=== PATIENT | female | born 1945 | race Asian ===

== ENCOUNTER 2017-02-07 10:32 | Inpatient (IN) | payer OTHER, MEDICAID ==
[~2017-02-07] VITALS: Ht 152.4 cm; Wt 59.5 kg
[2017-02-07 10:43] VITALS: Ht 152.4 cm; Wt 59.5 kg
[2017-02-07] MEDS ORDERED: morphine 4 MG/ML VIAL IV STA ×2 (12:36→19:44)
[2017-02-07] MEDS ORDERED: SOD CHLORIDE 0.9% 1,000 ML IV STA (12:36)
[2017-02-07] MEDS ORDERED: ONDANSETRON 4 MG INJ IV STA (12:36)
[2017-02-07] MEDS ORDERED: IBUPROFEN 600 MG TAB PO ONE (13:00)
[2017-02-07 13:05] LABS: ADD SCAN DIFF NO
[2017-02-07 13:07] LABS: BASOPHILS % 0.2 % (0.0-2.0); EOSINOPHILS # 0.8 10^3/ul (0.0-0.5); EOSINOPHILS % 6.1 % (0.0-7.0); HEMATOCRIT 26.3 % (37.0-47.0); HEMOGLOBIN 8.5 g/dl (12.0-16.0); LYMPHOCYTES # 1.4 10^3/ul (0.8-2.9); LYMPHOCYTES % 11.4 % (15.0-51.0); MEAN CORPUSCULAR HEMOGLOBIN 31.8 pg (29.0-33.0); MEAN CORPUSCULAR HGB CONC 32.3 g/dl (32.0-37.0); MEAN CORPUSCULAR VOLUME 98.5 fl (82.0-101.0); MONOCYTE # 0.5 10^3/ul (0.3-0.9); MONOCYTES % 4.4 % (0.0-11.0); NEUTROPHIL # 9.5 10^3/ul (1.6-7.5); NEUTROPHILS % 76.7 % (39.0-77.0); PLATELET COUNT 518 10^3/UL (140-415); RED BLOOD COUNT 2.67 10^6/ul (4.20-5.40); RED CELL DISTRIBUTION WIDTH 14.7 % (11.5-14.5); WHITE BLOOD COUNT 12.4 10^3/ul (4.8-10.8)
[2017-02-07] MEDS ORDERED: TYL500 PO (13:07)
[2017-02-07] MEDS ORDERED: LOSA100T7 PO (13:07)
[2017-02-07] MEDS ORDERED: ASPI-664 PO (13:07)
[2017-02-07] MEDS ORDERED: PIOG45TA6 PO (13:07)
[2017-02-07] MEDS ORDERED: AMOX500T PO (13:07)
[2017-02-07] MEDS ORDERED: MTF1000T PO (13:07)
[2017-02-07] MEDS ORDERED: ATOR40TA68 PO (13:07)
--- NOTE | 2017-02-07 13:22 | RADRPT ---
PROCEDURE: CHEST 1VW CLINICAL INDICATION: Abdominal pain TECHNIQUE: Single frontal view of the chest was obtained COMPARISON: 02/07/2017 FINDINGS: The cardiac size is mildly enlarged. Aortic vascular calcifications are demonstrated. There is no pulmonary vascular congestion. The lungs are clear. No consolidation, effusion, or pneumothorax. Mild degenerative changes of the visualized osseous structures are visualized. IMPRESSION: 1. No acute cardiopulmonary process. 2. Atherosclerosis with mild cardiomegaly. RPTAT:PP .Konstantin Falcon MD, Date Time Electronically viewed and signed by .Konstantin Falcon MD, on 02/07/2017 13:22 .V/
[2017-02-07 13:44] LABS: INR 1.12; PROTIME 14.4 Sec (12.2-14.2); PT RATIO 1.1
--- NOTE | 2017-02-07 13:59 | ERD ---
ER Documentation Chief Complaint Date/Time DATE: 02/07/17 TIME: 13:55 Chief Complaint SENT BY PCP - ENLARGED TENDER LEFT SIDE OF THE NECK AREA HPI 71-year-old woman referred by PMD for complaints of left lateral neck pain radiating up to the left scalp, associated with lymphadenopathy 2 weeks. Her PMD referred her here on suspicion of thyroiditis. Patient denies blurry vision , no dysgeusia, no weakness in her arms or legs, no slurred speech, no fevers or chills, no complaints of chest pain or shortness of breath. Patient denies hearing loss or discharge from the left EAC. HPI provided by ROS All systems reviewed and are negative except as per history of present illness. Medications Home Meds Reported Medications Atorvastatin* (Atorvastatin*) 40 Mg Tablet, 40 MG PO QHS, #30 TAB 02/07/17 Losartan Potassium* (Losartan Potassium*) 100 Mg Tablet, 100 MG PO DAILY, TAB 02/07/17 Pioglitazone Hcl* (Actos*) 45 Mg Tablet, 45 MG PO DAILY, #30 TAB 02/07/17 Metformin* (Glucophage*) 1,000 Mg Tablet, 1000 MG PO BID, #60 TAB 02/07/17 Acetaminophen* (Tylenol*) 500 Mg Tab, 500 MG PO Q4H Y for MILD PAIN LEVEL 1-3, TAB 02/07/17 Amoxicillin* (Amoxil*) 500 Mg Tablet, 500 MG PO BID, TAB 02/07/17 Aspirin* (Aspirin* EC) 81 Mg Tablet.dr, 81 MG PO DAILY, TAB 02/07/17 Allergies Allergies: Coded Allergies: No Known Allergy (Unverified , 02/07/17) PMhx/Soc Diabetes mellitus, hypertension, hyperlipidemia, coronary artery disease Medical and Surgical Hx: pt denies Surgical Hx Hx Miscellaneous Medical Probl: Yes (DM, HTN, HIGH CHOLESTEROL) Hx Alcohol Use: No Hx Substance Use: No Hx Tobacco Use: No Smoking Status: Never smoker FmHx Family History: No diabetes Physical Exam Vitals Vital Signs Date Time Temp Pulse Resp B/P Pulse Ox O2 Delivery O2 Flow Rate FiO2 02/07/17 14:38 91 20 148/67 94 Room Air 02/07/17 10:43 97.0 89 20 148/67 100 Physical Exam GENERAL: Well-developed, well-nourished, well-hydrated, in no apparent distress , looks nontoxic in appearance HEENT: Moist mucous membranes, pink conjunctiva, no goiter, positive tender lymphadenopathy over the lateral cervical chain on the left measuring about 3-4 cm in oval, mobile. No nystagmus, no ptosis, pupils equal round reactive to light, no esophageal or pharyngeal erythema, tympanic membranes bilaterally normal without bulging or erythema, no EAC discharge NEURO: Alert and oriented 3, cranial nerves II through XII intact bilaterally, pupils equal round reactive to light, no focal deficits or facial asymmetry, sensation intact distally Strength 5/5 in upper and lower extremities bilaterally, no ptosis, no nystagmus CARDIAC: Regular rate and rhythm, no murmurs rubs or gallops LUNGS: Clear bilaterally no wheezing crackles or stridor ABDOMEN: Soft nontender, no guarding, no rigidity, no rebound, no psoas sign no obturator sign. Normoactive bowel sounds SKIN: Warm and dry to touch, no abrasions, contusions, or hematomas, no lacerations, no ecchymosis, no target lesions, and without ulcers EXTREMITIES: No clubbing cyanosis or edema, calves are bilaterally symmetrical, no Homans sign, no popliteal cord sign. Distal pulses equal and bilateral PSYCH: Patient appears anxious Result Diagram: 02/07/17 1248 02/07/17 1248 Results 24 hrs Laboratory Tests Test 02/07/17 12:48 White Blood Count 12.410^3/ul Red Blood Count 2.6710^6/ul Hemoglobin 8.5g/dl Hematocrit 26.3% Mean Corpuscular Volume 98.5fl Mean Corpuscular Hemoglobin 31.8pg Mean Corpuscular Hemoglobin Concent 32.3g/dl Red Cell Distribution Width 14.7% Platelet Count 08195^3/UL Mean Platelet Volume 12.0fl Neutrophils % 76.7% Lymphocytes % 11.4% Monocytes % 4.4% Eosinophils % 6.1% Basophils % 0.2% Nucleated Red Blood Cells % 0.0/100WBC Neutrophils # 9.510^3/ul Lymphocytes # 1.410^3/ul Monocytes # 0.510^3/ul Eosinophils # 0.810^3/ul Basophils # 0.010^3/ul Nucleated Red Blood Cells # 0.010^3/ul Prothrombin Time 14.4Sec Prothrombin Time Ratio 1.1 INR International Normalized Ratio 1.12 Sodium Level 145mmol/L Potassium Level 3.7mmol/L Chloride Level 108mmol/L Carbon Dioxide Level 22mmol/L Anion Gap 19 Blood Urea Nitrogen 11mg/dl Creatinine 0.61mg/dl Glucose Level 183mg/dl Calcium Level 9.4mg/dl Total Bilirubin 0.2mg/dl Direct Bilirubin 0.00mg/dl Indirect Bilirubin 0.2mg/dl Aspartate Amino Transf (AST/SGOT) 53IU/L Alanine Aminotransferase (ALT/SGPT) 50IU/L Alkaline Phosphatase 319IU/L Troponin I < 0.012ng/ml Total Protein 8.4g/dl Albumin 4.1g/dl Globulin 4.30g/dl Albumin/Globulin Ratio 0.95 Lipase 121U/L Thyroid Stimulating Hormone (TSH) < 0.015MIU/L Free Thyroxine 3.07ng/dl Free Triiodothyronine (T3) pg/mL 3.77pg/ml Current Medications Medications (Trade) Dose Ordered Sig/Stephanie Route PRN Reason Start Time Stop Time Status Last Admin Dose Admin Sodium Chloride (NS) 1,000 ml @ 1,000 mls/hr Q1H STAT IV 02/07/17 12:36 02/07/17 13:35 DC 02/07/17 13:02 Morphine Sulfate (morphine) 4 mg ONCE STAT IV 02/07/17 12:36 02/07/17 12:37 DC 02/07/17 13:03 Ondansetron HCl (Zofran Inj) 4 mg ONCE STAT IV 02/07/17 12:36 02/07/17 12:37 DC 02/07/17 13:02 Ibuprofen (Motrin) 600 mg ONCE ONCE PO 02/07/17 13:00 02/07/17 13:01 DC 02/07/17 13:03 IV Flush 10 ml 10 ml STK-MED ONCE .ROUTE 02/07/17 14:23 02/07/17 14:24 DC 02/07/17 14:45 Sodium Chloride (NS) 100 ml @ ud STK-MED ONCE .ROUTE 02/07/17 14:23 02/07/17 14:24 DC 02/07/17 14:46 Iodixanol (Visipaque Locm) 100 ml STK-MED ONCE .ROUTE 02/07/17 14:23 02/07/17 14:24 DC 02/07/17 14:46 Procedures/MDM IV line was established patient was placed on clinical pharmacy specialist rhythm strip revealed a sinus rhythm at about 80 bpm with upright P and T waves. Patient was afebrile. EKG performed, read by me: 89 bpm, normal sinus rhythm, normal axis, no acute ST segment changes, narrow QRS complex, with good R-wave progression in precordial leads. One AP view of the chest performed, read by me reveals no acute infiltrates, normal mediastinum, sharp costophrenic and cardiac borders, no air under the diaphragm. CT angiogram of the neck was performed revealing a thyroid mass invading substernally. Please refer to radiologist dictation for full report. I administered 1 L normal saline intravenously, ibuprofen 600 mg p.o., morphine 4 mg IV, and Zofran 4 mg IV with good effect. Patient's pain resolved. CBC revealed anemia with a hemoglobin of 8.5, electrolytes were unremarkable, liver function tests were normal, troponin was negative. TSH was extremely low concerning for hyperthyroidism. Patient will be admitted to [facility] for continued medical management and possible heme/Onc consultation. Departure Diagnosis: Primary Impression: Thyroid mass Additional Impressions: Hyperthyroidism Anemia Anemia type: unspecified type Qualified Code: D64.9 - Anemia, unspecified type Lymphadenitis, acute Condition: RADHA Alvarenga MD Feb 07, 2017 13:59
[2017-02-07 14:11] LABS: ALANINE AMINOTRANSFERASE 50 IU/L (13-69); ALBUMIN 4.1 g/dl (3.3-4.9); ALBUMIN/GLOBULIN RATIO 0.95; ALKALINE PHOSPHATASE 319 IU/L (42-121); ANION GAP 19 (8-16); ASPARTATE AMINO TRANSFERASE 53 IU/L (15-46); BILIRUBIN,INDIRECT 0.2 mg/dl (0-1.1); BILIRUBIN,TOTAL 0.2 mg/dl (0.2-1.3); BLOOD UREA NITROGEN 11 mg/dl (7-20); CALCIUM 9.4 mg/dl (8.4-10.2); CARBON DIOXIDE 22 mmol/L (21-31); CHLORIDE 108 mmol/L (97-110); CREATININE 0.61 mg/dl (0.44-1.00); GLUCOSE 183 mg/dl (70-220); POTASSIUM 3.7 mmol/L (3.5-5.1); SODIUM 145 mmol/L (135-144); TOTAL PROTEIN 8.4 g/dl (6.1-8.1)
[2017-02-07 14:23] LABS: TROPONIN-I < 0.012 ng/ml (0.00-0.12)
[2017-02-07] MEDS ORDERED: SOD CHLORIDE 0.9% 100 ML ONE (14:23)
[2017-02-07] MEDS ORDERED: IODIXANOL LOCM 100 ML BTL ONE (14:23)
[2017-02-07 14:26] LABS: FREE T3 3.77 pg/ml (2.77-5.27)
[2017-02-07 14:44] LABS: THYROID STIMULATING HORMONE < 0.015 MIU/L (0.465-4.680)
--- NOTE | 2017-02-07 14:54 | RADRPT ---
PROCEDURE: CTA Neck. CLINICAL INDICATION: Left lymphadenopathy. TECHNIQUE: CTA of the neck was obtained. Sagittal and coronal reformations and MIPs were provided. I mages were obtained prior following the intravenous contrast administration of 90 cc of Visipaque 32 0 contrast. The administered radiation dose was CTDI vol = 19.8, 17.36 mGy, DLP = 9.9, 395.24 mGy- cm.Coronal and sagittal as well as maximal intensity projection reformations were obtained. Direct measurement of vessel diameter was made in reference to measurements of the distal internal carotid artery diameter. One or more of the following dose reduction techniques were used: Automated exposur e control, Adjustment of the mA and/or kV according to patient size, or Use of iterative reconstruct ion technique. COMPARISON: No prior studies are available for comparison. FINDINGS: CTA neck: Aorta: Normal in caliber. Right common carotid artery: Patent without evidence of stenosis. Right internal carotid artery: There are moderate vascular calcifications within the right carotid b ulb. Patent without evidence of stenosis. Right external carotid artery: Patent without evidence of stenosis. Left common carotid artery: Patent without evidence of stenosis. Left internal carotid artery: There are moderate vascular calcifications within the left carotid bul b. Patent without evidence of stenosis. Left external carotid artery: Patent without evidence of stenosis. V1/V2 vertebral arteries: Patent bilaterally without evidence of stenosis. Vertebral artery dominance: Left CT neck: There is no cervical adenopathy. The left thyroid lobe is enlarged and heterogeneous with multiple e nhancing septated portions. This measures 7 cm cranial caudally and extends substernally The right lobe is also heterogeneous with small nodules. There is a 1 cm coarse calcified right thyroid nodul e. There is a mild effacement of the trachea. There are coarse calcifications within the left palatine tonsil suggesting prior infectious/inflamma tory etiologies. There are a few small left cervical lymph nodes which are not enlarged by imaging c riteria. IMPRESSION: 1. Enlarged heterogeneous left thyroid lobe mass extending substernally. The thyroid is heterogeneo us as well as a coarse calcified right thyroid nodule. Ultrasound of the thyroid is recommended as well as correlation with serum chemistries. Tissue sampling may be performed given size as clinicall y warranted. there is mild effacement of the trachea. 2. A few small left cervical lymph nodes which are not enlarged by imaging criteria. 3. Atherosclerotic disease within the bilateral carotid bulbs without bilateral internal carotid ar ambrosio stenosis by NASCET criteria. Further findings as detailed above. RPTAT: PP .Devante Robert MD, Date Time Electronically viewed and signed by .Devante Robert MD, on 02/07/2017 14:54 .F/
[2017-02-07 23:00] VITALS: TEMP 99.8
[2017-02-07 23:42] VITALS: BP 143/63; RESP 16
[2017-02-08] MEDS ORDERED: ONDANSETRON 4 MG INJ IV PRN (00:30)
[2017-02-08] MEDS ORDERED: GLUCAGON 1 MG INJ IM PRN (01:00)
[2017-02-08] MEDS ORDERED: GLUCOSE GEL 15 GRAM TUBE BUCCAL PRN (01:00)
[2017-02-08] MEDS ORDERED: DEXTROSE 50% 50 ML SYRINGE IV PRN ×2 (01:00)
[2017-02-08] MEDS ORDERED: GLUCOSE GEL 15 GRAM TUBE PO PRN ×2 (01:00)
[2017-02-08] MEDS ORDERED: ACCU-CHEK XX SCH ×2 (02:00)
[2017-02-08] MEDS ORDERED: METHYLPREDNISOLONE 125 MG INJ IV SCH ×2 (04:30→05:00)
[2017-02-08] MEDS: ACETAMINOPHEN 500 MG TAB PO PRN (04:44)
[2017-02-08 05:35] LABS: ADD SCAN DIFF NO
[2017-02-08 05:45] LABS: BASOPHILS % 0.1 % (0.0-2.0); EOSINOPHILS # 0.5 10^3/ul (0.0-0.5); HEMATOCRIT 22.7 % (37.0-47.0); HEMOGLOBIN 7.4 g/dl (12.0-16.0); LYMPHOCYTES # 1.3 10^3/ul (0.8-2.9); LYMPHOCYTES % 12.8 % (15.0-51.0); MEAN CORPUSCULAR HEMOGLOBIN 31.9 pg (29.0-33.0); MEAN CORPUSCULAR HGB CONC 32.6 g/dl (32.0-37.0); MEAN CORPUSCULAR VOLUME 97.8 fl (82.0-101.0); MEAN PLATELET VOLUME 10.5 fl (7.4-10.4); MONOCYTE # 0.6 10^3/ul (0.3-0.9); MONOCYTES % 5.8 % (0.0-11.0); NEUTROPHIL # 7.7 10^3/ul (1.6-7.5); NEUTROPHILS % 75.3 % (39.0-77.0); NUCLEATED RED BLOOD CELLS% 0.2 /100WBC (0.0-0.0); PLATELET COUNT 501 10^3/UL (140-415); RED BLOOD COUNT 2.32 10^6/ul (4.20-5.40); RED CELL DISTRIBUTION WIDTH 14.3 % (11.5-14.5); WHITE BLOOD COUNT 10.2 10^3/ul (4.8-10.8)
--- NOTE | 2017-02-08 05:56 | HP ---
DATE OF ADMISSION: 02/07/2017 CHIEF COMPLAINT: Left neck swelling and pain. HISTORY OF PRESENT ILLNESS: The patient is a 71-year-old female who has a history of hypertension a nd diabetes who was referred to the ER by PMD for the evaluation of left neck mass. She reported th e symptom of chest discomfort and left neck pain and swelling that started about 2 weeks ago and jossie t has been progressively getting worse. Denied history of thyroid disease. She denied difficulty w ith swallowing or dyspnea. She also reported weight loss and headache with blurry vision. When she presented to the ER, her vitals were stable. CT of the neck shows left thyroid mass. Labo ratory values show a TSH of less than 0.0153 and free T4 3.07. Her alkaline phosphatase is also in the 300s. The patient is currently admitted to telemetry unit. REVIEW OF SYSTEMS: A 12-point review of systems is performed and negative except as mentioned in HP I. PAST MEDICAL HISTORY: Per HPI. SOCIAL HISTORY: Denied a history of tobacco, alcohol, or illicit drug use. ALLERGIES: NO KNOWN DRUG ALLERGIES. HOME MEDICATIONS: Please see reconciled medications. PHYSICAL EXAMINATION: VITAL SIGNS: Stable. GENERAL: The patient lying in bed in no acute distress. HEENT: No obvious head deformity. There is a neck mass that is centered in the middle which is ten snehal to touch. No scleral icterus. Pupils are reactive to light. CARDIOVASCULAR: Slightly tachycardic with regular rhythm. LUNGS: Clear. ABDOMEN: Soft, nontender, nondistended. Positive bowel sounds. EXTREMITIES: No edema. NEUROLOGIC: No focal deficits. LABORATORY DATA: Pertinent positives as mentioned in HPI. IMAGING DATA: CT of the neck shows left thyroid mass. Chest x-ray with no acute findings. IMPRESSION: 1. Left thyroid mass. 2. Hyperthyroidism. 3. History of hypertension. 4. History of diabetes. PLAN: 1. The patient's presentation could be the result of thyroiditis. We will start her on steroid, Pr opranolol and ____. We will place an endocrinology consult. As far as getting a biopsy of the mass is concerned, we will leave that decision up to endocrinology. 2. For her diabetes, she will be on insulin. 3. We will monitor her blood pressure and adjust antihypertensives as needed. Further workup and management will be per clinical course. Dictated By: GROVER LOTT/NTS Conf#: [id number] DID#: [id number]
[2017-02-08 06:04] LABS: CREATININE 0.61 mg/dl (0.44-1.00); PHOSPHORUS 2.5 mg/dl (2.5-4.9); POTASSIUM 3.9 mmol/L (3.5-5.1)
[2017-02-08 06:05] LABS: ALBUMIN 3.6 g/dl (3.3-4.9); ALBUMIN/GLOBULIN RATIO 0.9; BILIRUBIN,INDIRECT 0.3 mg/dl (0-1.1); BILIRUBIN,TOTAL 0.3 mg/dl (0.2-1.3); CHOL/HDL RATIO 8.3 RATIO; MAGNESIUM 1.7 mg/dl (1.7-2.5); TOTAL PROTEIN 7.6 g/dl (6.1-8.1)
[2017-02-08 08:42] VITALS: BP 130/60; RESP 18
[2017-02-08] MEDS: metFORMIN 500 MG TAB PO SCH ×2 (09:19→18:19)
[2017-02-08] MEDS: AMOXICILLIN 500 MG CAP PO SCH ×2 (09:19→20:18)
[2017-02-08] MEDS: ASPIRIN 81 MG TAB PO SCH (09:19)
[2017-02-08] MEDS: LOSARTAN 50 MG TAB PO SCH (09:19)
[2017-02-08] MEDS: INSULIN ASPART [NOVOLOG] 3 ML PEN SC SCH ×4 (09:25→21:01)
[2017-02-08] MEDS: PIOGLITAZONE 45 MG TAB PO SCH (09:57)
[2017-02-08] MEDS: PROPRANOLOL 10 MG TAB PO SCH ×2 (14:30→20:22)
[2017-02-08] MEDS: METHYLPREDNISOLONE 125 MG INJ IV SCH ×2 (14:30→20:59)
--- NOTE | 2017-02-08 14:48 | PN ---
Date/Time of Note Date/Time of Note DATE: 02/08/17 TIME: 14:45 Assessment/Plan VTE Prophylaxis VTE Prophylaxis Intervention: ambulation Lines/Catheters IV Catheter Type (from Nrs): Saline Lock Assessment/Plan Chief Complaint/Hosp Course Subjective: left neck pain. No diarrhea palpitations. Possible weight loss. No family history of cancer or thyroid disease that I am aware of. No significant dysphagia dysarthria. Feels better than yesterday Objective: Vital signs stable Physical examination No pallor adenopathy; nontender left thyroid gland Reg ctab Bs+; nt nd; no r/r/g no edema A/P 1. Lt Thyroid Mass; stable, consult endocrine. 2. Diabetes/metabolic syndrome 3. Dyslipidemia 4. Anemia Problems: Exam/Review of Systems Vital Signs Vitals Vital Signs Date Time Temp Pulse Resp B/P Pulse Ox O2 Delivery O2 Flow Rate FiO2 02/08/17 08:42 98.3 87 18 130/60 92 02/07/17 23:00 Room Air Intake and Output 02/07/17 02/07/17 02/08/17 15:00 23:00 07:00 Intake Total 480 ml Balance 480 ml Results Result Diagram: 02/08/17 0435 02/08/17 0435 Results 24 hrs Laboratory Tests Test 02/08/17 04:35 02/08/17 08:17 02/08/17 12:22 White Blood Count 10.2 Red Blood Count 2.32 L Hemoglobin 7.4 L Hematocrit 22.7 L Mean Corpuscular Volume 97.8 Mean Corpuscular Hemoglobin 31.9 Mean Corpuscular Hemoglobin Concent 32.6 Red Cell Distribution Width 14.3 Platelet Count 501 H Mean Platelet Volume 10.5 H Neutrophils % 75.3 Lymphocytes % 12.8 L Monocytes % 5.8 Eosinophils % 5.0 Basophils % 0.1 Nucleated Red Blood Cells % 0.2 H Neutrophils # 7.7 H Lymphocytes # 1.3 Monocytes # 0.6 Eosinophils # 0.5 Basophils # 0.0 Nucleated Red Blood Cells # 0.0 Sodium Level 141 Potassium Level 3.9 Chloride Level 108 Carbon Dioxide Level 25 Anion Gap 12 # Blood Urea Nitrogen 7 Creatinine 0.61 Glucose Level 191 Hemoglobin A1c 6.8 H Calcium Level 9.0 Phosphorus Level 2.5 Magnesium Level 1.7 Total Bilirubin 0.3 Direct Bilirubin 0.00 Indirect Bilirubin 0.3 Aspartate Amino Transf (AST/SGOT) 48 H Alanine Aminotransferase (ALT/SGPT) 48 Alkaline Phosphatase 260 H Total Protein 7.6 Albumin 3.6 Globulin 4.00 H Albumin/Globulin Ratio 0.90 Triglycerides Level 105 Cholesterol Level 159 LDL Cholesterol, Calculated 119 HDL Cholesterol 19 L Cholesterol/HDL Ratio 8.3 Random Cortisol 18.0 Bedside Glucose 252 H 314 H Medications Medications Current Medications Aspirin (Aspirin) 81 mg DAILY PO Last administered on 02/08/17 09:19; Admin Dose 81 MG; Start 02/08/17 at 09:00 Amoxicillin (Amoxicillin) 500 mg BID PO Last administered on 02/08/17 09:19; Admin Dose 500 MG; Start 02/08/17 at 09:00 Acetaminophen (Tylenol Tab) 500 mg Q6H PRN PO PAIN AND OR ELEVATED TEMP Last administered on 02/08/17 04:44; Admin Dose 500 MG; Start 02/08/17 at 00:30 Pioglitazone HCl (Actos) 45 mg DAILY PO Last administered on 02/08/17 09:57; Admin Dose 45 MG; Start 02/08/17 at 09:00 Losartan Potassium (Cozaar) 100 mg DAILY PO Last administered on 02/08/17 09:19 ; Admin Dose 100 MG; Start 02/08/17 at 09:00 Atorvastatin Calcium (Lipitor) 40 mg HS PO ; Start 02/08/17 at 21:00 Diagnostic Test (Pha) (Accu-Chek) 1 ea 02 XX ; Start 02/08/17 at 02:00 Ondansetron HCl (Zofran Inj) 4 mg Q6H PRN IV NAUSEA AND/OR VOMITING; Start 02/08 at 00:30 Miscellaneous Information 1 ea NOTE XX ; Start 02/08/17 at 01:00 Glucose (Glutose) 15 gm Q15M PRN PO DECREASED GLUCOSE; Start 02/08/17 at 01:00 Glucose (Glutose) 22.5 gm Q15M PRN PO DECREASED GLUCOSE; Start 02/08/17 at 01:00 Dextrose (D50w Syringe) 25 ml Q15M PRN IV DECREASED GLUCOSE; Start 02/08/17 at 01:00 Dextrose (D50w Syringe) 50 ml Q15M PRN IV DECREASED GLUCOSE; Start 02/08/17 at 01:00 Glucagon (Glucagen) 1 mg Q15M PRN IM DECREASED GLUCOSE; Start 02/08/17 at 01:00 Glucose (Glutose) 15 gm Q15M PRN BUCCAL DECREASED GLUCOSE; Start 02/08/17 at 01: 00 Methylprednisolone Sodium Succinate (Solu-Medrol) 100 mg Q8 IV Last administered on 02/08/17 14:30; Admin Dose 100 MG; Start 02/08/17 at 14:00 Propranolol HCl (Inderal) 10 mg TID PO Last administered on 02/08/17 14:30; Admin Dose 10 MG; Start 02/08/17 at 13:00 GINO ROBLERO MD Feb 08, 2017 14:48
--- NOTE | 2017-02-08 17:23 | CONS ---
Date/Time of Note Date/Time of Note DATE: 02/08/17 TIME: 17:17 Assessment/Plan Assessment/Plan Problems: (1) Anemia Status: Acute Comment: Workup has been ordered. More details to follow Qualifiers: Qualified Code: D64.9 - Anemia, unspecified type (2) Hyperthyroidism Status: Acute Comment: The duration of the hyperthyroidism is unclear. I do not believe that this rep represents acute thyroiditis with Mera's thyrotoxicosis. However a sedimentation rate will be checked as if this is due to acute thyroiditis sed rate will be upwards of 100. For now my workup would have been nuclear medicine thyroid uptake and scan to determine whether or not the left thyroid nodule hyperfunctioning nodule or hypofunctioning nodule. If it was hyperfunctioning I will taken her directly I-131 ablation which would have shrunk down the nodule. However the patient was treated in our emergency room with a CT scan with iodinated contrast. As such I cannot do any of these tests for at least 2 months. Is quite probable that the patient's nodule actually represents a cyst that has been bled into. Will do a regular thyroid ultrasound and then if there is a fluid-filled component drain that out under ultrasound guidance. (3) Thyroid mass Status: Acute Comment: As above. Because I am precluded by virtue of the CT scan with contrast from doing the nuclear medicine studies will go ahead and do ultrasound if there is obvious fluid-filled cystic mass will drain the fluid. (4) Diabetes mellitus type 2 in nonobese Status: Chronic Comment: Continue the patient on her outpatient regimen adjust as appropriate. (5) Essential hypertension Status: Chronic Comment: Stable and controlled (6) Hyperlipidemia Status: Chronic Comment: Noted Qualifiers: Qualified Code: E78.00 - Pure hypercholesterolemia (7) Elevated liver enzymes Status: Chronic Comment: Check hepatitis serologies. Consultation Date/Type/Reason Admit Date/Time Feb 07, 2017 at 15:35 Date of Consultation: Feb 08, 2017 Type of Consultation: Endocrinology Reason for Consultation Hyperthyroidism; left thyroid nodule redness spreading retrosternally; diabetes mellitus type 2; hyperlipidemia; hypertension Referring Provider: ERROL ESTRADA of Present Illness Charming 71-year-old Laotian female in bed. Limited Maltese. She reports several day history of having had a tenderness in the left neck that came on abruptly. She denies any known history of thyroid disease however her review of systems is positive for tremor and palpitation which goes back at least 2 months. There are no fevers chills or sweats no specific weight loss although on questioning from a different direction she has had some loss of weight Constitutional: no complaints (Denies fevers chills or sweats) ENT: other (Enlarged left side of neck) Respiratory: no complaints Cardiovascular: no complaints Past Medical History Medical History: diabetes, high cholesterol, hypertension Past Surgical History Past Surgical Hx: noncontributory Family History Significant Family History: no pertinent family hx (Negative for thyroid cancer ) Social History Alcohol Use: none Smoking Status: Never smoker Drug Use: none Exam/Review of Systems Vital Signs Vitals Vital Signs Date Time Temp Pulse Resp B/P Pulse Ox O2 Delivery O2 Flow Rate FiO2 02/08/17 08:42 98.3 87 18 130/60 92 02/07/17 23:00 Room Air Intake and Output 02/07/17 02/07/17 02/08/17 15:00 23:00 07:00 Intake Total 480 ml Balance 480 ml Exam Constitutional: alert, oriented Neck: non-tender, supple, thyromegaly (Left-sided enlargement of thyroid gland that is tender) Respiratory: clear to auscultation, normal air movement Cardiovascular: nl pulses, regular rate and rhythm Neurological: other (Fine high-speed tremor) Results Result Diagram: 02/08/17 0435 02/08/17 0435 Results 24 hrs Laboratory Tests Test 02/08/17 04:35 02/08/17 08:17 02/08/17 12:22 White Blood Count 10.2 Red Blood Count 2.32 L Hemoglobin 7.4 L Hematocrit 22.7 L Mean Corpuscular Volume 97.8 Mean Corpuscular Hemoglobin 31.9 Mean Corpuscular Hemoglobin Concent 32.6 Red Cell Distribution Width 14.3 Platelet Count 501 H Mean Platelet Volume 10.5 H Neutrophils % 75.3 Lymphocytes % 12.8 L Monocytes % 5.8 Eosinophils % 5.0 Basophils % 0.1 Nucleated Red Blood Cells % 0.2 H Neutrophils # 7.7 H Lymphocytes # 1.3 Monocytes # 0.6 Eosinophils # 0.5 Basophils # 0.0 Nucleated Red Blood Cells # 0.0 Sodium Level 141 Potassium Level 3.9 Chloride Level 108 Carbon Dioxide Level 25 Anion Gap 12 # Blood Urea Nitrogen 7 Creatinine 0.61 Glucose Level 191 Hemoglobin A1c 6.8 H Calcium Level 9.0 Phosphorus Level 2.5 Magnesium Level 1.7 Total Bilirubin 0.3 Direct Bilirubin 0.00 Indirect Bilirubin 0.3 Aspartate Amino Transf (AST/SGOT) 48 H Alanine Aminotransferase (ALT/SGPT) 48 Alkaline Phosphatase 260 H Total Protein 7.6 Albumin 3.6 Globulin 4.00 H Albumin/Globulin Ratio 0.90 Triglycerides Level 105 Cholesterol Level 159 LDL Cholesterol, Calculated 119 HDL Cholesterol 19 L Cholesterol/HDL Ratio 8.3 Random Cortisol 18.0 Bedside Glucose 252 H 314 H Medications Medications Current Medications Aspirin (Aspirin) 81 mg DAILY PO Last administered on 02/08/17 09:19; Admin Dose 81 MG; Start 02/08/17 at 09:00 Amoxicillin (Amoxicillin) 500 mg BID PO Last administered on 02/08/17 09:19; Admin Dose 500 MG; Start 02/08/17 at 09:00 Acetaminophen (Tylenol Tab) 500 mg Q6H PRN PO PAIN AND OR ELEVATED TEMP Last administered on 02/08/17 04:44; Admin Dose 500 MG; Start 02/08/17 at 00:30 Pioglitazone HCl (Actos) 45 mg DAILY PO Last administered on 02/08/17 09:57; Admin Dose 45 MG; Start 02/08/17 at 09:00 Losartan Potassium (Cozaar) 100 mg DAILY PO Last administered on 02/08/17 09:19 ; Admin Dose 100 MG; Start 02/08/17 at 09:00 Atorvastatin Calcium (Lipitor) 40 mg HS PO ; Start 02/08/17 at 21:00 Ondansetron HCl (Zofran Inj) 4 mg Q6H PRN IV NAUSEA AND/OR VOMITING; Start 02/08 at 00:30 Miscellaneous Information 1 ea NOTE XX ; Start 02/08/17 at 01:00 Glucose (Glutose) 15 gm Q15M PRN PO DECREASED GLUCOSE; Start 02/08/17 at 01:00 Glucose (Glutose) 22.5 gm Q15M PRN PO DECREASED GLUCOSE; Start 02/08/17 at 01:00 Dextrose (D50w Syringe) 25 ml Q15M PRN IV DECREASED GLUCOSE; Start 02/08/17 at 01:00 Dextrose (D50w Syringe) 50 ml Q15M PRN IV DECREASED GLUCOSE; Start 02/08/17 at 01:00 Glucagon (Glucagen) 1 mg Q15M PRN IM DECREASED GLUCOSE; Start 02/08/17 at 01:00 Glucose (Glutose) 15 gm Q15M PRN BUCCAL DECREASED GLUCOSE; Start 02/08/17 at 01: 00 Methylprednisolone Sodium Succinate (Solu-Medrol) 100 mg Q8 IV Last administered on 02/08/17 14:30; Admin Dose 100 MG; Start 02/08/17 at 14:00 Propranolol HCl (Inderal) 10 mg TID PO Last administered on 02/08/17 14:30; Admin Dose 10 MG; Start 02/08/17 at 13:00 Diagnostic Test (Pha) (Accu-Chek) 1 ea 02 XX ; Start 02/09/17 at 02:00 YONATAN HERNANDEZ MD Feb 08, 2017 17:23
[2017-02-08] MEDS: ATORVASTATIN 40 MG TAB PO SCH (20:18)
[2017-02-08] MEDS ORDERED: INSULIN ASPART [NOVOLOG] 3 ML PEN SC ONE (21:00)
[2017-02-08] MEDS ORDERED: INSULIN GLARGINE [LANtus] 3 ML PEN SC SCH (21:00)
[2017-02-08 21:57] VITALS: BP 141/63; RESP 20
[2017-02-08] MEDS: SENNA TAB PO SCH (23:00)
[2017-02-08] MEDS ORDERED: MAGNESIUM HYDROXIDE 30ML CUP PO PRN (23:00)
[2017-02-08] MEDS ORDERED: MAGNESIUM HYDROXIDE 30ML CUP PO ONE (23:00)
[2017-02-09] VITALS (8 sets, daily range): BP systolic 132–154; BP diastolic 60–69; PULSE 70–73; RESP 18–20
[2017-02-09] MEDS: ACCU-CHEK XX SCH ×2 (02:00→02:09)
[2017-02-09 05:22] LABS: ADD SCAN DIFF NO
[2017-02-09 05:30] LABS: HEMATOCRIT 21.6 % (37.0-47.0); HEMOGLOBIN 7.1 g/dl (12.0-16.0); LYMPHOCYTES # 0.9 10^3/ul (0.8-2.9); LYMPHOCYTES % 9.3 % (15.0-51.0); MEAN CORPUSCULAR HEMOGLOBIN 31.6 pg (29.0-33.0); MEAN CORPUSCULAR HGB CONC 32.9 g/dl (32.0-37.0); MEAN PLATELET VOLUME 10.2 fl (7.4-10.4); MONOCYTE # 0.1 10^3/ul (0.3-0.9); NEUTROPHIL # 8.8 10^3/ul (1.6-7.5); NEUTROPHILS % 88.7 % (39.0-77.0); PLATELET COUNT 591 10^3/UL (140-415); RED BLOOD COUNT 2.25 10^6/ul (4.20-5.40); RED CELL DISTRIBUTION WIDTH 13.8 % (11.5-14.5); WHITE BLOOD COUNT 9.9 10^3/ul (4.8-10.8)
[2017-02-09] MEDS: METHYLPREDNISOLONE 125 MG INJ IV SCH ×2 (05:30→14:00)
[2017-02-09 06:00] LABS: ALBUMIN 3.8 g/dl (3.3-4.9); BILIRUBIN,INDIRECT 0.2 mg/dl (0-1.1); BILIRUBIN,TOTAL 0.2 mg/dl (0.2-1.3); CALCIUM 9.3 mg/dl (8.4-10.2); CREATININE 0.74 mg/dl (0.44-1.00); MAGNESIUM 2.1 mg/dl (1.7-2.5); PHOSPHORUS 3.5 mg/dl (2.5-4.9); TOTAL PROTEIN 7.6 g/dl (6.1-8.1)
[2017-02-09 06:08] LABS: IRON 71 ug/dl (35-150)
[2017-02-09 06:17] LABS: TOTAL IRON BINDING CAPACITY 190 ug/dl (241-421)
[2017-02-09] MEDS: INSULIN ASPART [NOVOLOG] 3 ML PEN SC SCH ×4 (07:50→21:08)
[2017-02-09] MEDS: metFORMIN 500 MG TAB PO SCH ×2 (07:50→17:54)
[2017-02-09] MEDS: AMOXICILLIN 500 MG CAP PO SCH ×2 (10:25→20:39)
[2017-02-09] MEDS: LOSARTAN 50 MG TAB PO SCH (10:25)
[2017-02-09] MEDS: PIOGLITAZONE 45 MG TAB PO SCH (10:25)
[2017-02-09] MEDS: PROPRANOLOL 10 MG TAB PO SCH ×3 (10:26→20:40)
[2017-02-09] MEDS: ASPIRIN 81 MG TAB PO SCH (10:26)
[2017-02-09] MEDS: SENNA TAB PO SCH ×2 (10:26→20:40)
--- NOTE | 2017-02-09 12:18 | PN ---
Date/Time of Note Date/Time of Note DATE: 02/09/17 TIME: 12:16 Assessment/Plan VTE Prophylaxis VTE Prophylaxis Intervention: contraindicated VTE Contraindication Reason: sx procedure on lower extremity Lines/Catheters IV Catheter Type (from Nrsg): Saline Lock Assessment/Plan Chief Complaint/Hosp Course Subjective: 02/08 lt neck pain. No diarrhea palpitations. Possible wt loss. No fh of Ca or thyroid. No dysphagia dysarthria. Feels better than yesterday. 02/08 potentially subjective fever chills. No dysphagia dysarthria. O: Vss; temperature 99 noted PE No pallor; nt lt thyroid gland Reg ctab Bs+; nt nd; no r/r/g no edema A/P 1. Lt Thyroid Mass; stable, biopsied today. R-iodine may be in 2 months. -DC antibiotics and steroids if ok w endocrinology. 2. Diabetes/metabolic syndrome 3. Dyslipidemia 4. Anemia Problems: Exam/Review of Systems Vital Signs Vitals Vital Signs Date Time Temp Pulse Resp B/P Pulse Ox O2 Delivery O2 Flow Rate FiO2 02/09/17 08:56 99.0 86 18 150/69 94 02/07/17 23:00 Room Air Intake and Output 02/08/17 02/08/17 02/09/17 15:00 23:00 07:00 Intake Total 960 ml 300 ml Balance 960 ml 300 ml Results Result Diagram: 02/09/17 0441 02/09/17 0441 Results 24 hrs Laboratory Tests Test 02/08/17 12:22 02/08/17 17:53 02/08/17 20:13 02/09/17 02:12 Bedside Glucose 314 H 299 H 322 H 242 H Test 02/09/17 04:41 02/09/17 09:05 White Blood Count 9.9 Red Blood Count 2.25 L Hemoglobin 7.1 L Hematocrit 21.6 L Mean Corpuscular Volume 96.0 Mean Corpuscular Hemoglobin 31.6 Mean Corpuscular Hemoglobin Concent 32.9 Red Cell Distribution Width 13.8 Platelet Count 591 H Mean Platelet Volume 10.2 Neutrophils % 88.7 H Lymphocytes % 9.3 L Monocytes % 1.0 Eosinophils % 0.0 Basophils % 0.0 Nucleated Red Blood Cells % 0.0 Neutrophils # 8.8 H Lymphocytes # 0.9 Monocytes # 0.1 L Eosinophils # 0.0 Basophils # 0.0 Nucleated Red Blood Cells # 0.0 Erythrocyte Sedimentation Rate 130 H Sodium Level 138 Potassium Level 4.0 Chloride Level 106 Carbon Dioxide Level 23 Anion Gap 13 Blood Urea Nitrogen 26 #H Creatinine 0.74 Glucose Level 272 H Calcium Level 9.3 Phosphorus Level 3.5 Magnesium Level 2.1 Iron Level 71 Total Iron Binding Capacity 190 L Percent Iron Saturation 37 Ferritin 370.0 H Total Bilirubin 0.2 Direct Bilirubin 0.00 Indirect Bilirubin 0.2 Aspartate Amino Transf (AST/SGOT) 48 H Alanine Aminotransferase (ALT/SGPT) 54 Alkaline Phosphatase 242 H Total Protein 7.6 Albumin 3.8 Globulin 3.80 H Albumin/Globulin Ratio 1.00 Bedside Glucose 265 H Medications Medications Current Medications Aspirin (Aspirin) 81 mg DAILY PO Last administered on 02/09/17 10:26; Admin Dose 81 MG; Start 02/08/17 at 09:00 Amoxicillin (Amoxicillin) 500 mg BID PO Last administered on 02/09/17 10:25; Admin Dose 500 MG; Start 02/08/17 at 09:00 Acetaminophen (Tylenol Tab) 500 mg Q6H PRN PO PAIN AND OR ELEVATED TEMP Last administered on 02/08/17 04:44; Admin Dose 500 MG; Start 02/08/17 at 00:30 Pioglitazone HCl (Actos) 45 mg DAILY PO Last administered on 02/09/17 10:25; Admin Dose 45 MG; Start 02/08/17 at 09:00 Losartan Potassium (Cozaar) 100 mg DAILY PO Last administered on 02/09/17 10:25 ; Admin Dose 100 MG; Start 02/08/17 at 09:00 Atorvastatin Calcium (Lipitor) 40 mg HS PO Last administered on 02/08/17 20:18 ; Admin Dose 40 MG; Start 02/08/17 at 21:00 Ondansetron HCl (Zofran Inj) 4 mg Q6H PRN IV NAUSEA AND/OR VOMITING; Start 02/08 at 00:30 Miscellaneous Information 1 ea NOTE XX ; Start 02/08/17 at 01:00 Glucose (Glutose) 15 gm Q15M PRN PO DECREASED GLUCOSE; Start 02/08/17 at 01:00 Glucose (Glutose) 22.5 gm Q15M PRN PO DECREASED GLUCOSE; Start 02/08/17 at 01:00 Dextrose (D50w Syringe) 25 ml Q15M PRN IV DECREASED GLUCOSE; Start 02/08/17 at 01:00 Dextrose (D50w Syringe) 50 ml Q15M PRN IV DECREASED GLUCOSE; Start 02/08/17 at 01:00 Glucagon (Glucagen) 1 mg Q15M PRN IM DECREASED GLUCOSE; Start 02/08/17 at 01:00 Glucose (Glutose) 15 gm Q15M PRN BUCCAL DECREASED GLUCOSE; Start 02/08/17 at 01: 00 Methylprednisolone Sodium Succinate (Solu-Medrol) 100 mg Q8 IV Last administered on 02/09/17 05:30; Admin Dose 100 MG; Start 02/08/17 at 14:00 Propranolol HCl (Inderal) 10 mg TID PO Last administered on 02/09/17 10:26; Admin Dose 10 MG; Start 02/08/17 at 13:00 Diagnostic Test (Pha) (Accu-Chek) 1 ea 02 XX Last administered on 02/09/17 02: 09; Admin Dose 1 EA; Start 02/09/17 at 02:00 Insulin Glargine (Lantus) 12 unit DAILY@20 SC Last administered on 02/08/17 22: 34; Admin Dose 12 UNIT; Start 02/08/17 at 21:00 Senna (Senokot) 2 tab BID PO Last administered on 02/09/17 10:26; Admin Dose 2 TAB; Start 02/08/17 at 23:00 Magnesium Hydroxide (Milk Of Mag) 30 ml DAILY PRN PO CONSTIPATION; Start at 23:00 Famotidine (Pepcid) 20 mg DAILY PO ; Start 02/10/17 at 09:00; Status GINO CHAVEZ MD Feb 09, 2017 12:18
[2017-02-09] MEDS ORDERED: LIDOCAINE 1% (MPF) 5 ML VIAL ONE (15:17)
--- NOTE | 2017-02-09 15:48 | RADRPT ---
PROCEDURE: US thyroid. CLINICAL INDICATION: Left thyroid nodule in a patient with hyperthyroidism//see n TECHNIQUE: Multiple sonographic images of the thyroid were obtained utilizing a linear array trans ducer with grayscale and color-flow and a Doppler imaging. The images were reviewed on a high-resolu [employer] PACS workstation. COMPARISON: No prior studies are available for comparison. FINDINGS: The thyroid gland is homogeneous in echogenicity and normal in size. The right lobe measures 5.5 x 2.2 x 1.8 cm. The left lobe measures 7.5 x 3.7 x 4.5 cm. The isthmus measures 3 mm. Right thyroid nodules: There is a partially circumscribed 9 mm simple cyst in the midpole. In the lateral aspect of the right thyroid lobe is a 7 mm round hypoechoic lesion with an eccentric hyperechoic component measuring up to 3 mm. No abnormal vascular flow is noted within or around it. Left thyroid nodules: There is a large well-circumscribed hypoechoic mass occupying much of the left thyroid lobe measurin g up to 6.7 x 3.5 x 4.4 cm. Microcalcifications are noted within it. Foci of vascular flow noted wi thin it. IMPRESSION: 6.7 cm well-circumscribed hypoechoic lesion with microcalcifications and vascular flow in the left t hyroid lobe meet sonographic criteria for fine-needle aspiration. 7 mm hypoechoic lesion in the right thyroid lobe with an eccentric hyperechoic component. Continued sonographic follow-up is recommended. 9 mm partially circumscribed cyst in the midpole of the right thyroid lobe. Continued sonographic f ollow-up is recommended. RPTAT: EE Physician Moshe Date Time Electronically viewed and signed by Physician Moshe on 02/09/2017 15:48 RA/
--- NOTE | 2017-02-09 15:49 | RADRPT ---
PROCEDURE: Ultrasound guided thyroid biopsy CLINICAL INDICATION: Thyroid nodule/mass TECHNIQUE: Multiple sonographic images of the thyroid were obtained utilizing a linear array trans ducer with grayscale and color-flow and a Doppler imaging. The images were reviewed on a high-resolu [employer] PACS workstation. The patient was placed in the supine position and the neck was hyperextended. A site in the patient 's left neck was selected and marked. 1% lidocaine was utilized for local anesthesia. A 25 gauge spinal needle was advanced into the nodule and 5 FNA aspirates were obtained. The samples were evaluated by pathology and deemed to be of diagnostic quality. 1 of the fine-needle aspiration samples was submitted in saline for culture and sensitivity. A sterile dressing was applied. The patient tolerated the procedure well. COMPARISON: None FINDINGS: As above IMPRESSION: Uncomplicated ultrasound-guided left thyroid biopsy, as above. A fine needle aspiration sample was submitted in saline for culture and sensitivity. RPTAT: EE Physician Moshe Date Time Electronically viewed and signed by Physician Moshe on 02/09/2017 15:49 MARCELA
--- NOTE | 2017-02-09 17:54 | RADRPT ---
Vent Rate: 81 bpm RR Interval: 0 msec WV Interval: 138 msec QRS Duration: 86 msec QT Interval: 374 msec QTC Interval: 434 msec P-R-T [place]: 64 - 64 - 60 degrees Normal sinus rhythm Normal ECG Electronically Signed By: Yannick Cho [id number]
--- NOTE | 2017-02-09 17:56 | CONS ---
Date/Time of Note Date/Time of Note DATE: 02/09/17 TIME: 17:54 Assessment/Plan Assessment/Plan Chief Complaint/Hosp Course Vito 71-year-old Laotian female in bed. Limited Bangladeshi. She reports several day history of having had a tenderness in the left neck that came on abruptly. She denies any known history of thyroid disease however her review of systems is positive for tremor and palpitation which goes back at least 2 months. There are no fevers chills or sweats no specific weight loss although on questioning from a different direction she has had some loss of weight Problems: (1) Hyperthyroidism Status: Acute Comment: Initiate treatment with methimazole at this time. (2) Thyroid mass Status: Acute Comment: Biopsy performed and results pending. (3) Diabetes mellitus type 2 in nonobese Status: Chronic Comment: Lower dosage of steroids and follow along (4) Essential hypertension Status: Chronic Comment: Adequate control (5) Hyperlipidemia Status: Chronic Comment: On appropriate treatment Qualifiers: Hyperlipidemia type: pure hypercholesterolemia Qualified Code: E78.00 - Pure hypercholesterolemia (6) Elevated liver enzymes Status: Chronic Comment: Hepatitis serologies are negative. (7) Anemia Status: Acute Comment: This is worsening. I am deferring off management to the primary team. Qualifiers: Anemia type: unspecified type Qualified Code: D64.9 - Anemia, unspecified type Consultation Date/Type/Reason Admit Date/Time Feb 07, 2017 at 15:35 Initial Consult Date 02/08/17 Type of Consultation: Endocrinology Reason for Consultation Hyperthyroidism; diabetes mellitus type 2; large thyroid nodule Referring Provider: ERROL ESTRADA 24 HR Interval Summary Free Text/Dictation Tolerated ultrasound-guided FNA biopsy without issue. Please note dated the 25- gauge needle as such if this was fluid-filled this would not of drained at Exam/Review of Systems Vital Signs Vitals Vital Signs Date Time Temp Pulse Resp B/P Pulse Ox O2 Delivery O2 Flow Rate FiO2 02/09/17 15:51 98.0 70 18 146/68 94 02/09/17 14:00 Room Air Intake and Output 02/08/17 02/08/17 02/09/17 15:00 23:00 07:00 Intake Total 960 ml 300 ml Balance 960 ml 300 ml Exam Constitutional: alert, oriented Respiratory: clear to auscultation, normal air movement Results Result Diagram: 6/7/17 0441 02/09/17 0441 Results 24 hrs Laboratory Tests Test 02/08/17 20:13 02/09/17 02:12 02/09/17 04:41 02/09/17 09:05 Bedside Glucose 322 H 242 H 265 H White Blood Count 9.9 Red Blood Count 2.25 L Hemoglobin 7.1 L Hematocrit 21.6 L Mean Corpuscular Volume 96.0 Mean Corpuscular Hemoglobin 31.6 Mean Corpuscular Hemoglobin Concent 32.9 Red Cell Distribution Width 13.8 Platelet Count 591 H Mean Platelet Volume 10.2 Neutrophils % 88.7 H Lymphocytes % 9.3 L Monocytes % 1.0 Eosinophils % 0.0 Basophils % 0.0 Nucleated Red Blood Cells % 0.0 Neutrophils # 8.8 H Lymphocytes # 0.9 Monocytes # 0.1 L Eosinophils # 0.0 Basophils # 0.0 Nucleated Red Blood Cells # 0.0 Erythrocyte Sedimentation Rate 130 H Sodium Level 138 Potassium Level 4.0 Chloride Level 106 Carbon Dioxide Level 23 Anion Gap 13 Blood Urea Nitrogen 26 #H Creatinine 0.74 Glucose Level 272 H Calcium Level 9.3 Phosphorus Level 3.5 Magnesium Level 2.1 Iron Level 71 Total Iron Binding Capacity 190 L Percent Iron Saturation 37 Ferritin 370.0 H Total Bilirubin 0.2 Direct Bilirubin 0.00 Indirect Bilirubin 0.2 Aspartate Amino Transf (AST/SGOT) 48 H Alanine Aminotransferase (ALT/SGPT) 54 Alkaline Phosphatase 242 H Total Protein 7.6 Albumin 3.8 Globulin 3.80 H Albumin/Globulin Ratio 1.00 Test 02/09/17 12:16 02/09/17 14:20 02/09/17 17:50 Bedside Glucose 287 H 258 H Stool Occult Blood POSITIVE Medications Medications Current Medications Aspirin (Aspirin) 81 mg DAILY PO Last administered on 02/09/17 10:26; Admin Dose 81 MG; Start 02/08/17 at 09:00 Amoxicillin (Amoxicillin) 500 mg BID PO Last administered on 02/09/17 10:25; Admin Dose 500 MG; Start 02/08/17 at 09:00 Acetaminophen (Tylenol Tab) 500 mg Q6H PRN PO PAIN AND OR ELEVATED TEMP Last administered on 02/08/17 04:44; Admin Dose 500 MG; Start 02/08/17 at 00:30 Pioglitazone HCl (Actos) 45 mg DAILY PO Last administered on 02/09/17 10:25; Admin Dose 45 MG; Start 02/08/17 at 09:00 Losartan Potassium (Cozaar) 100 mg DAILY PO Last administered on 02/09/17 10:25 ; Admin Dose 100 MG; Start 02/08/17 at 09:00 Atorvastatin Calcium (Lipitor) 40 mg HS PO Last administered on 02/08/17 20:18 ; Admin Dose 40 MG; Start 02/08/17 at 21:00 Ondansetron HCl (Zofran Inj) 4 mg Q6H PRN IV NAUSEA AND/OR VOMITING; Start 02/08 at 00:30 Miscellaneous Information 1 ea NOTE XX ; Start 02/08/17 at 01:00 Glucose (Glutose) 15 gm Q15M PRN PO DECREASED GLUCOSE; Start 02/08/17 at 01:00 Glucose (Glutose) 22.5 gm Q15M PRN PO DECREASED GLUCOSE; Start 02/08/17 at 01:00 Dextrose (D50w Syringe) 25 ml Q15M PRN IV DECREASED GLUCOSE; Start 02/08/17 at 01:00 Dextrose (D50w Syringe) 50 ml Q15M PRN IV DECREASED GLUCOSE; Start 02/08/17 at 01:00 Glucagon (Glucagen) 1 mg Q15M PRN IM DECREASED GLUCOSE; Start 02/08/17 at 01:00 Glucose (Glutose) 15 gm Q15M PRN BUCCAL DECREASED GLUCOSE; Start 02/08/17 at 01: 00 Methylprednisolone Sodium Succinate (Solu-Medrol) 100 mg Q8 IV Last administered on 02/09/17 14:00; Admin Dose 100 MG; Start 02/08/17 at 14:00 Propranolol HCl (Inderal) 10 mg TID PO Last administered on 02/09/17 14:03; Admin Dose 10 MG; Start 02/08/17 at 13:00 Diagnostic Test (Pha) (Accu-Chek) 1 ea 02 XX Last administered on 02/09/17 02: 09; Admin Dose 1 EA; Start 02/09/17 at 02:00 Senna (Senokot) 2 tab BID PO Last administered on 02/09/17 10:26; Admin Dose 2 TAB; Start 02/08/17 at 23:00 Magnesium Hydroxide (Milk Of Mag) 30 ml DAILY PRN PO CONSTIPATION; Start at 23:00 Famotidine (Pepcid) 20 mg DAILY PO ; Start 02/10/17 at 09:00 Insulin Glargine (Lantus) 15 unit DAILY@20 SC ; Start 02/09/17 at 20:00 YONATAN HERNANDEZ MD Feb 09, 2017 17:56
[2017-02-09] MEDS ORDERED: PANTOPRAZOLE (EC) 40 MG TAB PO ONE (18:00)
[2017-02-09] MEDS: ATORVASTATIN 40 MG TAB PO SCH (20:40)
[2017-02-09] MEDS: INSULIN GLARGINE [LANtus] 3 ML PEN SC SCH (20:50)
[2017-02-09] MEDS ORDERED: INSULIN ASPART [NOVOLOG] 3 ML PEN SC ONE (21:00)
[2017-02-09] MEDS: METHIMAZOLE 5 MG TAB PO SCH (22:36)
[2017-02-09] MEDS: METHYLPREDNISOLONE 40 MG INJ IV SCH (22:36)
[2017-02-10] MEDS: ACCU-CHEK XX SCH (02:00)
[2017-02-10] MEDS: ACETAMINOPHEN 500 MG TAB PO PRN (04:38)
[2017-02-10] MEDS: METHYLPREDNISOLONE 40 MG INJ IV SCH ×3 (06:22→21:46)
[2017-02-10] MEDS: PANTOPRAZOLE (EC) 40 MG TAB PO SCH (06:23)
[2017-02-10] MEDS ORDERED: MELOXICAM 15 MG TAB PO SCH (07:20)
[2017-02-10 08:04] VITALS: BP 140/72; RESP 18
--- NOTE | 2017-02-10 08:20 | CONS ---
Date/Time of Note Date/Time of Note DATE: 02/10/17 TIME: 08:16 Assessment/Plan Assessment/Plan Chief Complaint/Hosp Course Vito 71-year-old Laotian female in bed. Limited [place] Sor[place]. She reports several day history of having had a tenderness in the left neck that came on abruptly. She denies any known history of thyroid disease however her review of systems is positive for tremor and palpitation which goes back at least 2 months. There are no fevers chills or sweats no specific weight loss although on questioning from a different direction she has had some loss of weight Problems: (1) Anemia Status: Acute Comment: Her blood counts are dropping. Will defer off to the primary team but at this point I suspect she is appropriate candidate for transfusion. Qualifiers: Anemia type: unspecified type Qualified Code: D64.9 - Anemia, unspecified type (2) Hyperthyroidism Status: Acute Comment: She has initiated treatment and is tolerating the medication without complications. Will need to observe for elevation of liver chemistries and white count. (3) Thyroid mass Status: Acute Comment: Pathology report pending after FNA biopsy. The behavior of this is more consistent with an acute hemorrhagic cysts or acute thyroiditis. However there is one possible catastrophic finding which would be an anaplastic carcinoma thyroid. Which is extremely rare and unlikely. Again the pathology will help delineate (4) Diabetes mellitus type 2 in nonobese Status: Chronic Comment: Adjusting steroid dosing. (5) Essential hypertension Status: Chronic Comment: Adequate control. (6) Hyperlipidemia Status: Chronic Comment: On statin therapy. Qualifiers: Hyperlipidemia type: pure hypercholesterolemia Qualified Code: E78.00 - Pure hypercholesterolemia (7) Elevated liver enzymes Status: Chronic Comment: Continued observation. Probable nonalcoholic fatty liver disease Consultation Date/Type/Reason Admit Date/Time Feb 07, 2017 at 15:35 Initial Consult Date 02/08/17 Type of Consultation: Endocrinology Reason for Consultation Hyperthyroidism; large left thyroid nodule; insulin resistance syndrome with diabetes mellitus type 2 Referring Provider: ERROL ESTRADA 24 HR Interval Summary Free Text/Dictation Patient reports with treatment she is significantly more comfortable and better. Exam/Review of Systems Vital Signs Vitals Vital Signs Date Time Temp Pulse Resp B/P Pulse Ox O2 Delivery O2 Flow Rate FiO2 02/10/17 08:04 98.2 68 18 140/72 98 02/09/17 16:35 Room Air Intake and Output 02/09/17 02/09/17 02/10/17 15:00 23:00 07:00 Intake Total 1340 ml 600 ml Output Total 700 ml Balance 1340 ml -100 ml Exam Constitutional: alert, oriented Neck: thyromegaly Respiratory: clear to auscultation, normal air movement Cardiovascular: nl pulses, regular rate and rhythm Results Result Diagram: 02/09/17 0441 02/09/17 0441 Results 24 hrs Laboratory Tests Test 02/09/17 09:05 02/09/17 12:16 02/09/17 14:20 02/09/17 17:50 Bedside Glucose 265 H 287 H 258 H Stool Occult Blood POSITIVE Test 02/09/17 20:43 02/10/17 02:10 02/10/17 06:13 02/10/17 07:56 Bedside Glucose 330 H 192 237 H Lab Scanned Report BLOOD TRANSFUSION Medications Medications Current Medications Aspirin (Aspirin) 81 mg DAILY PO Last administered on 02/09/17 10:26; Admin Dose 81 MG; Start 02/08/17 at 09:00 Amoxicillin (Amoxicillin) 500 mg BID PO Last administered on 02/09/17 20:39; Admin Dose 500 MG; Start 02/08/17 at 09:00 Acetaminophen (Tylenol Tab) 500 mg Q6H PRN PO PAIN AND OR ELEVATED TEMP Last administered on 02/10/17 04:38; Admin Dose 500 MG; Start 02/08/17 at 00:30 Pioglitazone HCl (Actos) 45 mg DAILY PO Last administered on 02/09/17 10:25; Admin Dose 45 MG; Start 02/08/17 at 09:00 Losartan Potassium (Cozaar) 100 mg DAILY PO Last administered on 02/09/17 10:25 ; Admin Dose 100 MG; Start 02/08/17 at 09:00 Atorvastatin Calcium (Lipitor) 40 mg HS PO Last administered on 02/09/17 20:40 ; Admin Dose 40 MG; Start 02/08/17 at 21:00 Ondansetron HCl (Zofran Inj) 4 mg Q6H PRN IV NAUSEA AND/OR VOMITING; Start 02/08 at 00:30 Miscellaneous Information 1 ea NOTE XX ; Start 02/08/17 at 01:00 Glucose (Glutose) 15 gm Q15M PRN PO DECREASED GLUCOSE; Start 02/08/17 at 01:00 Glucose (Glutose) 22.5 gm Q15M PRN PO DECREASED GLUCOSE; Start 02/08/17 at 01:00 Dextrose (D50w Syringe) 25 ml Q15M PRN IV DECREASED GLUCOSE; Start 02/08/17 at 01:00 Dextrose (D50w Syringe) 50 ml Q15M PRN IV DECREASED GLUCOSE; Start 02/08/17 at 01:00 Glucagon (Glucagen) 1 mg Q15M PRN IM DECREASED GLUCOSE; Start 02/08/17 at 01:00 Glucose (Glutose) 15 gm Q15M PRN BUCCAL DECREASED GLUCOSE; Start 02/08/17 at 01: 00 Propranolol HCl (Inderal) 10 mg TID PO Last administered on 02/09/17 20:40; Admin Dose 10 MG; Start 02/08/17 at 13:00 Diagnostic Test (Pha) (Accu-Chek) 1 ea 02 XX Last administered on 02/09/17 02: 09; Admin Dose 1 EA; Start 02/09/17 at 02:00 Senna (Senokot) 2 tab BID PO Last administered on 02/09/17 20:40; Admin Dose 2 TAB; Start 02/08/17 at 23:00 Magnesium Hydroxide (Milk Of Mag) 30 ml DAILY PRN PO CONSTIPATION; Start at 23:00 Famotidine (Pepcid) 20 mg DAILY PO ; Start 02/10/17 at 09:00 Insulin Glargine (Lantus) 15 unit DAILY@20 SC Last administered on 02/09/17 20: 50; Admin Dose 15 UNIT; Start 02/09/17 at 20:00 Methylprednisolone Sodium Succinate (Solu-Medrol) 40 mg Q8 IV Last administered on 02/10/17 06:22; Admin Dose 40 MG; Start 02/09/17 at 22:00 Pantoprazole (Protonix Tab) 40 mg DAILY@06 PO Last administered on 02/10/17 06: 23; Admin Dose 40 MG; Start 02/10/17 at 06:00 Methimazole (Tapazole) 10 mg QHS PO Last administered on 02/09/17 22:36; Admin Dose 10 MG; Start 02/09/17 at 21:00 Insulin Human NPH (Humulin N) 10 unit Q8 SC ; Start 02/10/17 at 14:00; Status YONATAN LOCK MD Feb 10, 2017 08:20
[2017-02-10] MEDS: FAMOTIDINE 20 MG TAB PO SCH (08:35)
[2017-02-10] MEDS: metFORMIN 500 MG TAB PO SCH ×2 (08:36→17:49)
[2017-02-10] MEDS: PIOGLITAZONE 45 MG TAB PO SCH (08:37)
[2017-02-10] MEDS: AMOXICILLIN 500 MG CAP PO SCH ×2 (08:37→20:26)
[2017-02-10] MEDS: LOSARTAN 50 MG TAB PO SCH (08:37)
[2017-02-10] MEDS: SENNA TAB PO SCH ×2 (08:38→21:00)
[2017-02-10] MEDS: PROPRANOLOL 10 MG TAB PO SCH ×3 (08:38→20:30)
[2017-02-10] MEDS: INSULIN ASPART [NOVOLOG] 3 ML PEN SC SCH ×4 (08:39→20:38)
[2017-02-10] MEDS: ASPIRIN 81 MG TAB PO SCH (11:08)
[2017-02-10] MEDS: NPH, HUMAN INSULIN ISOPHANE 3ML VIAL SC SCH ×2 (14:24→21:48)
--- NOTE | 2017-02-10 16:35 | PN ---
Date/Time of Note Date/Time of Note DATE: 02/10/17 TIME: 16:33 Assessment/Plan VTE Prophylaxis VTE Prophylaxis Intervention: ambulation Lines/Catheters IV [facility]from [facility] Saline Lock Urinary Cath still in place: No Assessment/Plan Chief Complaint/Hosp Course S: 02/08 lt neck pain. No diarrhea palpitations. Possible wt loss. No fh of Ca or thyroid. No dysphagia dysarthria. Feels better than yesterday. 02/08 potentially subjective fever chills. No dysphagia dysarthria. 02/09: No events O: Vss PE No pallor; nt lt thyroid gland Reg ctab Bs+; nt nd; no r/r/g no edema A/P 1. Lt Thyroid Mass; stable, sp biopsy. Pathology back may be Mon/. R- iodine in maybe 2 mnth. -DC antibiotics and steroids if ok w endocrinology. Discharge home if stable/ okay with endocrinology. Antibiotics? 2. Diabetes/metabolic syndrome 3. Dyslipidemia 4. Anemia; occult positive. Outpatient screening colonoscopy if patient chooses. Problems: Exam/Review of Systems Vital Signs Vitals Vital Signs Date Time Temp Pulse Resp B/P Pulse Ox O2 Delivery O2 Flow Rate FiO2 02/10/17 08:04 98.2 68 18 140/72 98 02/09/17 16:35 Room Air Intake and Output 02/09/17 02/09/17 02/10/17 15:00 23:00 07:00 Intake Total 1340 ml 600 ml Output Total 700 ml Balance 1340 ml -100 ml Results Result Diagram: 02/09/17 0441 02/09/17 0441 Results 24 hrs Laboratory Tests Test 02/09/17 17:50 02/09/17 20:43 02/10/17 02:10 02/10/17 06:13 Bedside Glucose 258 H 330 H 192 Lab Scanned Report BLOOD TRANSFUSION Test 02/10/17 07:56 02/10/17 11:37 Bedside Glucose 237 H 272 H Medications Medications Current Medications Aspirin (Aspirin) 81 mg DAILY PO Last administered on 02/10/17 11:08; Admin Dose 81 MG; Start 02/08/17 at 09:00 Amoxicillin (Amoxicillin) 500 mg BID PO Last administered on 02/10/17 08:37; Admin Dose 500 MG; Start 02/08/17 at 09:00 Acetaminophen (Tylenol Tab) 500 mg Q6H PRN PO PAIN AND OR ELEVATED TEMP Last administered on 02/10/17 04:38; Admin Dose 500 MG; Start 02/08/17 at 00:30 Pioglitazone HCl (Actos) 45 mg DAILY PO Last administered on 02/10/17 08:37; Admin Dose 45 MG; Start 02/08/17 at 09:00 Losartan Potassium (Cozaar) 100 mg DAILY PO Last administered on 02/10/17 08:37 ; Admin Dose 100 MG; Start 02/08/17 at 09:00 Atorvastatin Calcium (Lipitor) 40 mg HS PO Last administered on 02/09/17 20:40 ; Admin Dose 40 MG; Start 02/08/17 at 21:00 Ondansetron HCl (Zofran Inj) 4 mg Q6H PRN IV NAUSEA AND/OR VOMITING; Start 02/08 at 00:30 Miscellaneous Information 1 ea NOTE XX ; Start 02/08/17 at 01:00 Glucose (Glutose) 15 gm Q15M PRN PO DECREASED GLUCOSE; Start 02/08/17 at 01:00 Glucose (Glutose) 22.5 gm Q15M PRN PO DECREASED GLUCOSE; Start 02/08/17 at 01:00 Dextrose (D50w Syringe) 25 ml Q15M PRN IV DECREASED GLUCOSE; Start 02/08/17 at 01:00 Dextrose (D50w Syringe) 50 ml Q15M PRN IV DECREASED GLUCOSE; Start 02/08/17 at 01:00 Glucagon (Glucagen) 1 mg Q15M PRN IM DECREASED GLUCOSE; Start 02/08/17 at 01:00 Glucose (Glutose) 15 gm Q15M PRN BUCCAL DECREASED GLUCOSE; Start 02/08/17 at 01: 00 Propranolol HCl (Inderal) 10 mg TID PO Last administered on 02/10/17 14:25; Admin Dose 10 MG; Start 02/08/17 at 13:00 Diagnostic Test (Pha) (Accu-Chek) 1 ea 02 XX Last administered on 02/09/17 02: 09; Admin Dose 1 EA; Start 02/09/17 at 02:00 Senna (Senokot) 2 tab BID PO Last administered on 02/10/17 08:38; Admin Dose 2 TAB; Start 02/08/17 at 23:00 Magnesium Hydroxide (Milk Of Mag) 30 ml DAILY PRN PO CONSTIPATION; Start at 23:00 Famotidine (Pepcid) 20 mg DAILY PO Last administered on 02/10/17 08:35; Admin Dose 20 MG; Start 02/10/17 at 09:00 Insulin Glargine (Lantus) 15 unit DAILY@20 SC Last administered on 02/09/17 20: 50; Admin Dose 15 UNIT; Start 02/09/17 at 20:00 Methylprednisolone Sodium Succinate (Solu-Medrol) 40 mg Q8 IV Last administered on 02/10/17 14:24; Admin Dose 40 MG; Start 02/09/17 at 22:00 Pantoprazole (Protonix Tab) 40 mg DAILY@06 PO Last administered on 02/10/17 06: 23; Admin Dose 40 MG; Start 02/10/17 at 06:00 Methimazole (Tapazole) 10 mg QHS PO Last administered on 02/09/17 22:36; Admin Dose 10 MG; Start 02/09/17 at 21:00 Insulin Human NPH (Humulin N) 10 unit Q8 SC Last administered on 02/10/17 14:24 ; Admin Dose 10 UNIT; Start 02/10/17 at 14:00 GINO ROBLERO MD Feb 10, 2017 16:35
[2017-02-10] MEDS: LACTOBACILLUS RHAMNOSUS CAP PO SCH (20:24)
[2017-02-10] MEDS: METHIMAZOLE 5 MG TAB PO SCH (20:26)
[2017-02-10] MEDS: ATORVASTATIN 40 MG TAB PO SCH (20:31)
[2017-02-10] MEDS: INSULIN GLARGINE [LANtus] 3 ML PEN SC SCH (20:38)
[2017-02-10 22:58] VITALS: BP 121/56; RESP 20
[2017-02-11] MEDS: ACCU-CHEK XX SCH ×2 (02:00→21:44)
[2017-02-11 05:39] LABS: ADD SCAN DIFF NO
[2017-02-11 05:46] LABS: BASOPHILS % 0.1 % (0.0-2.0); HEMATOCRIT 31.6 % (37.0-47.0); HEMOGLOBIN 10.8 g/dl (12.0-16.0); LYMPHOCYTES # 0.9 10^3/ul (0.8-2.9); LYMPHOCYTES % 9.2 % (15.0-51.0); MEAN CORPUSCULAR HGB CONC 34.2 g/dl (32.0-37.0); MEAN CORPUSCULAR VOLUME 93.5 fl (82.0-101.0); MEAN PLATELET VOLUME 9.9 fl (7.4-10.4); MONOCYTE # 0.4 10^3/ul (0.3-0.9); MONOCYTES % 4.6 % (0.0-11.0); NEUTROPHIL # 8.1 10^3/ul (1.6-7.5); NEUTROPHILS % 84.6 % (39.0-77.0); NUCLEATED RED BLOOD CELLS% 0.3 /100WBC (0.0-0.0); PLATELET COUNT 574 10^3/UL (140-415); RED BLOOD COUNT 3.38 10^6/ul (4.20-5.40); WHITE BLOOD COUNT 9.6 10^3/ul (4.8-10.8)
[2017-02-11] MEDS ORDERED: NPH, HUMAN INSULIN ISOPHANE 3ML VIAL SC SCH (06:00)
[2017-02-11] MEDS ORDERED: METHYLPREDNISOLONE 40 MG INJ IV SCH (06:00)
[2017-02-11 06:11] LABS: ALBUMIN 3.3 g/dl (3.3-4.9); ALBUMIN/GLOBULIN RATIO 0.94; BILIRUBIN,INDIRECT 0.2 mg/dl (0-1.1); BILIRUBIN,TOTAL 0.2 mg/dl (0.2-1.3); CALCIUM 9.2 mg/dl (8.4-10.2); CREATININE 0.74 mg/dl (0.44-1.00); POTASSIUM 4.5 mmol/L (3.5-5.1); TOTAL PROTEIN 6.8 g/dl (6.1-8.1)
[2017-02-11] MEDS: PANTOPRAZOLE (EC) 40 MG TAB PO SCH (06:26)
[2017-02-11 07:56] VITALS: BP 163/74; RESP 18
[2017-02-11] MEDS: ASPIRIN 81 MG TAB PO SCH (08:46)
[2017-02-11] MEDS: INSULIN ASPART [NOVOLOG] 3 ML PEN SC SCH ×4 (08:46→21:00)
[2017-02-11] MEDS: AMOXICILLIN 500 MG CAP PO SCH ×3 (08:46→20:33)
[2017-02-11] MEDS: FAMOTIDINE 20 MG TAB PO SCH (08:46)
[2017-02-11] MEDS: PROPRANOLOL 10 MG TAB PO SCH ×3 (08:47→20:31)
[2017-02-11] MEDS: metFORMIN 500 MG TAB PO SCH ×2 (08:47→18:04)
[2017-02-11] MEDS: PIOGLITAZONE 45 MG TAB PO SCH (08:47)
[2017-02-11] MEDS: LOSARTAN 50 MG TAB PO SCH (08:47)
[2017-02-11] MEDS: LACTOBACILLUS RHAMNOSUS CAP PO SCH ×2 (08:47→20:33)
[2017-02-11] MEDS: SENNA TAB PO SCH ×2 (08:48→21:00)
[2017-02-11] MEDS ORDERED: CEFOTAXIME 2 GM/50 ML (PMX) 50 ML IVPB ONE (10:00)
--- NOTE | 2017-02-11 13:56 | CONS ---
Date/Time of Note Date/Time of Note DATE: 02/11/17 TIME: 13:53 Assessment/Plan Assessment/Plan Chief Complaint/Hosp Course Vito 71-year-old Laotian female in bed. Limited Chinese. She reports several day history of having had a tenderness in the left neck that came on abruptly. She denies any known history of thyroid disease however her review of systems is positive for tremor and palpitation which goes back at least 2 months. There are no fevers chills or sweats no specific weight loss although on questioning from a different direction she has had some loss of weight Problems: (1) Abscess of thyroid Status: Acute Comment: This is somewhat unusual finding. The patient has no known history of a thyroglossal duct cyst or esophageal injury or percutaneous approach. Regardless of a positive culture and positive clinical response to antibiotics. Will have ear nose and throat consult on her to verify the plan. 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 However if we can calm this down and not do surgery then I can treat her in a more traditional in conventional fashion (2) Hyperthyroidism Status: Acute Comment: She is on antithyroid drug therapy is successfully. She is still significantly hyperthyroid as there is not been enough time for this to settle her down (3) Diabetes mellitus type 2 in nonobese Status: Chronic Comment: Adequate control (4) Essential hypertension Status: Chronic Comment: Adequate control (5) Elevated liver enzymes Status: Chronic Comment: Her hepatitis serologies are negative. This most likely nonalcoholic fatty liver disease associated with a diabetes (6) Hyperlipidemia Status: Chronic Comment: Noted and stable on statin therapy Qualifiers: Hyperlipidemia type: pure hypercholesterolemia Qualified Code: E78.00 - Pure hypercholesterolemia (7) Anemia Status: Acute Comment: Holding steady at this time after transfusion Qualifiers: Anemia type: unspecified type Qualified Code: D64.9 - Anemia, unspecified type Consultation Date/Type/Reason Admit Date/Time Feb 07, 2017 at 15:35 Initial Consult Date 02/08/17 Type of Consultation: Endocrinology Reason for Consultation Hyperthyroid goiter; left thyroid nodule growing E. coli. Referring Provider: ERROL ESTRADA 24 HR Interval Summary Free Text/Dictation Patient with limited Chinese reports that she is feeling significantly better. She would like to go home. Constitutional: no complaints (No fevers chills or sweats) Exam/Review of Systems Vital Signs Vitals Vital Signs Date Time Temp Pulse Resp B/P Pulse Ox O2 Delivery O2 Flow Rate FiO2 02/11/17 07:56 97.8 69 18 163/74 95 02/09/17 16:35 Room Air Intake and Output 02/10/17 02/10/17 02/11/17 15:00 23:00 07:00 Intake Total 720 ml 950 ml Output Total 900 ml Balance 720 ml 50 ml Exam Constitutional: alert, oriented Neck: supple, thyromegaly (Left thyroid nodule which is a smaller and be much less tender) Respiratory: clear to auscultation, normal air movement Cardiovascular: nl pulses, regular rate and rhythm Results Result Diagram: 02/11/17 0500 02/11/17 0500 Results 24 hrs Laboratory Tests Test 02/10/17 17:05 02/10/17 20:21 02/11/17 02:05 02/11/17 05:00 Bedside Glucose 268 H 265 H 159 White Blood Count 9.6 Red Blood Count 3.38 #L Hemoglobin 10.8 #L Hematocrit 31.6 #L Mean Corpuscular Volume 93.5 Mean Corpuscular Hemoglobin 32.0 Mean Corpuscular Hemoglobin Concent 34.2 Red Cell Distribution Width 15.0 H Platelet Count 574 H Mean Platelet Volume 9.9 Neutrophils % 84.6 H Lymphocytes % 9.2 L Monocytes % 4.6 Eosinophils % 0.0 Basophils % 0.1 Nucleated Red Blood Cells % 0.3 H Neutrophils # 8.1 H Lymphocytes # 0.9 Monocytes # 0.4 Eosinophils # 0.0 Basophils # 0.0 Nucleated Red Blood Cells # 0.0 Sodium Level 138 Potassium Level 4.5 Chloride Level 106 Carbon Dioxide Level 24 Anion Gap 13 Blood Urea Nitrogen 23 H Creatinine 0.74 Glucose Level 178 Calcium Level 9.2 Total Bilirubin 0.2 Direct Bilirubin 0.00 Indirect Bilirubin 0.2 Aspartate Amino Transf (AST/SGOT) 27 Alanine Aminotransferase (ALT/SGPT) 48 Alkaline Phosphatase 178 H Total Protein 6.8 Albumin 3.3 Globulin 3.50 H Albumin/Globulin Ratio 0.94 Test 02/11/17 07:10 02/11/17 07:59 02/11/17 12:05 Lab Scanned Report BLOOD TRANSFUSION Bedside Glucose 167 167 Medications Medications Current Medications Aspirin (Aspirin) 81 mg DAILY PO Last administered on 02/11/17 08:46; Admin Dose 81 MG; Start 02/08/17 at 09:00 Acetaminophen (Tylenol Tab) 500 mg Q6H PRN PO PAIN AND OR ELEVATED TEMP Last administered on 02/10/17 04:38; Admin Dose 500 MG; Start 02/08/17 at 00:30 Pioglitazone HCl (Actos) 45 mg DAILY PO Last administered on 02/11/17 08:47; Admin Dose 45 MG; Start 02/08/17 at 09:00 Losartan Potassium (Cozaar) 100 mg DAILY PO Last administered on 02/11/17 08:47 ; Admin Dose 100 MG; Start 02/08/17 at 09:00 Atorvastatin Calcium (Lipitor) 40 mg HS PO Last administered on 02/10/17 20:31 ; Admin Dose 40 MG; Start 02/08/17 at 21:00 Ondansetron HCl (Zofran Inj) 4 mg Q6H PRN IV NAUSEA AND/OR VOMITING; Start 02/08 at 00:30 Miscellaneous Information 1 ea NOTE XX ; Start 02/08/17 at 01:00 Glucose (Glutose) 15 gm Q15M PRN PO DECREASED GLUCOSE; Start 02/08/17 at 01:00 Glucose (Glutose) 22.5 gm Q15M PRN PO DECREASED GLUCOSE; Start 02/08/17 at 01:00 Dextrose (D50w Syringe) 25 ml Q15M PRN IV DECREASED GLUCOSE; Start 02/08/17 at 01:00 Dextrose (D50w Syringe) 50 ml Q15M PRN IV DECREASED GLUCOSE; Start 02/08/17 at 01:00 Glucagon (Glucagen) 1 mg Q15M PRN IM DECREASED GLUCOSE; Start 02/08/17 at 01:00 Glucose (Glutose) 15 gm Q15M PRN BUCCAL DECREASED GLUCOSE; Start 02/08/17 at 01: 00 Propranolol HCl (Inderal) 10 mg TID PO Last administered on 02/11/17 12:40; Admin Dose 10 MG; Start 02/08/17 at 13:00 Diagnostic Test (Pha) (Accu-Chek) 1 ea 02 XX Last administered on 02/09/17 02: 09; Admin Dose 1 EA; Start 02/09/17 at 02:00 Senna (Senokot) 2 tab BID PO Last administered on 02/11/17 08:48; Admin Dose 2 TAB; Start 02/08/17 at 23:00 Magnesium Hydroxide (Milk Of Mag) 30 ml DAILY PRN PO CONSTIPATION; Start at 23:00 Famotidine (Pepcid) 20 mg DAILY PO Last administered on 02/11/17 08:46; Admin Dose 20 MG; Start 02/10/17 at 09:00 Insulin Glargine (Lantus) 15 unit DAILY@20 SC Last administered on 02/10/17 20: 38; Admin Dose 15 UNIT; Start 02/09/17 at 20:00 Pantoprazole (Protonix Tab) 40 mg DAILY@06 PO Last administered on 02/11/17 06: 26; Admin Dose 40 MG; Start 02/10/17 at 06:00 Methimazole (Tapazole) 10 mg QHS PO Last administered on 02/10/17 20:26; Admin Dose 10 MG; Start 02/09/17 at 21:00 Lactobacillus Acidophilus/ Rhamnosus (Culturelle) 1 cap BID PO Last administered on 02/11/17 08:47; Admin Dose 1 CAP; Start 02/10/17 at 21:00 Amoxicillin (Amoxicillin) 500 mg TID PO Last administered on 02/11/17 12:40; Admin Dose 500 MG; Start 02/11/17 at 09:00; Stop 02/25/17 at 08:59 YONATAN HERNANDEZ MD Feb 11, 2017 13:56
--- NOTE | 2017-02-11 15:05 | PN ---
Date/Time of Note Date/Time of Note DATE: 02/11/17 TIME: 15:02 Assessment/Plan VTE Prophylaxis VTE Prophylaxis Intervention: contraindicated Lines/Catheters IV Catheter Type (from Nrs): Saline Lock Urinary Cath still in place: No Assessment/Plan Chief Complaint/Hosp Course S: 02/08: lt neck pain. No diarrhea palpitations. Possible wt loss. No fh of Ca or thyroid. No dysphagia dysarthria. Feels better than yesterday. 02/08: potentially subjective fever chills. No dysphagia dysarthria. 02/09: No events 02/11: O: Vss PE No pallor; nt lt thyroid gland Reg ctab Bs+; nt nd; no r/r/g no edema A/P 1. Lt Thyroid Mass; stable, sp biopsy. Pathology w e coli. R-iodine in maybe 2 mnth? -DC steroids. Potentially thyroglossal duct cyst/obstruction. MNG noted as well. -Low perioperative risk. May proceed forward from medical standpoint should surgery be indicated from ENT standpoint. -Infection risk, may need thyroidectomy. Updated daughter (Yovani -[phone]) in [place], who requests to speak with ENT as well. 2. Diabetes/metabolic syndrome 3. Dyslipidemia 4. Anemia; occult positive. Outpt screening colonoscopy if patient chooses. Problems: Exam/Review of Systems Vital Signs Vitals Vital Signs Date Time Temp Pulse Resp B/P Pulse Ox O2 Delivery O2 Flow Rate FiO2 02/11/17 07:56 97.8 69 18 163/74 95 02/09/17 16:35 Room Air Intake and Output 02/10/17 02/10/17 02/11/17 15:00 23:00 07:00 Intake Total 720 ml 950 ml Output Total 900 ml Balance 720 ml 50 ml Results Result Diagram: 02/11/17 0500 02/11/17 0500 Results 24 hrs Laboratory Tests Test 02/10/17 17:05 02/10/17 20:21 02/11/17 02:05 02/11/17 05:00 Bedside Glucose 268 H 265 H 159 White Blood Count 9.6 Red Blood Count 3.38 #L Hemoglobin 10.8 #L Hematocrit 31.6 #L Mean Corpuscular Volume 93.5 Mean Corpuscular Hemoglobin 32.0 Mean Corpuscular Hemoglobin Concent 34.2 Red Cell Distribution Width 15.0 H Platelet Count 574 H Mean Platelet Volume 9.9 Neutrophils % 84.6 H Lymphocytes % 9.2 L Monocytes % 4.6 Eosinophils % 0.0 Basophils % 0.1 Nucleated Red Blood Cells % 0.3 H Neutrophils # 8.1 H Lymphocytes # 0.9 Monocytes # 0.4 Eosinophils # 0.0 Basophils # 0.0 Nucleated Red Blood Cells # 0.0 Sodium Level 138 Potassium Level 4.5 Chloride Level 106 Carbon Dioxide Level 24 Anion Gap 13 Blood Urea Nitrogen 23 H Creatinine 0.74 Glucose Level 178 Calcium Level 9.2 Total Bilirubin 0.2 Direct Bilirubin 0.00 Indirect Bilirubin 0.2 Aspartate Amino Transf (AST/SGOT) 27 Alanine Aminotransferase (ALT/SGPT) 48 Alkaline Phosphatase 178 H Total Protein 6.8 Albumin 3.3 Globulin 3.50 H Albumin/Globulin Ratio 0.94 Test 02/11/17 07:10 02/11/17 07:59 02/11/17 12:05 Lab Scanned Report BLOOD TRANSFUSION Bedside Glucose 167 167 Medications Medications Current Medications Aspirin (Aspirin) 81 mg DAILY PO Last administered on 02/11/17 08:46; Admin Dose 81 MG; Start 02/08/17 at 09:00 Acetaminophen (Tylenol Tab) 500 mg Q6H PRN PO PAIN AND OR ELEVATED TEMP Last administered on 02/10/17 04:38; Admin Dose 500 MG; Start 02/08/17 at 00:30 Pioglitazone HCl (Actos) 45 mg DAILY PO Last administered on 02/11/17 08:47; Admin Dose 45 MG; Start 02/08/17 at 09:00 Losartan Potassium (Cozaar) 100 mg DAILY PO Last administered on 02/11/17 08:47 ; Admin Dose 100 MG; Start 02/08/17 at 09:00 Atorvastatin Calcium (Lipitor) 40 mg HS PO Last administered on 02/10/17 20:31 ; Admin Dose 40 MG; Start 02/08/17 at 21:00 Ondansetron HCl (Zofran Inj) 4 mg Q6H PRN IV NAUSEA AND/OR VOMITING; Start 02/08 at 00:30 Miscellaneous Information 1 ea NOTE XX ; Start 02/08/17 at 01:00 Glucose (Glutose) 15 gm Q15M PRN PO DECREASED GLUCOSE; Start 02/08/17 at 01:00 Glucose (Glutose) 22.5 gm Q15M PRN PO DECREASED GLUCOSE; Start 02/08/17 at 01:00 Dextrose (D50w Syringe) 25 ml Q15M PRN IV DECREASED GLUCOSE; Start 02/08/17 at 01:00 Dextrose (D50w Syringe) 50 ml Q15M PRN IV DECREASED GLUCOSE; Start 02/08/17 at 01:00 Glucagon (Glucagen) 1 mg Q15M PRN IM DECREASED GLUCOSE; Start 02/08/17 at 01:00 Glucose (Glutose) 15 gm Q15M PRN BUCCAL DECREASED GLUCOSE; Start 02/08/17 at 01: 00 Propranolol HCl (Inderal) 10 mg TID PO Last administered on 02/11/17 12:40; Admin Dose 10 MG; Start 02/08/17 at 13:00 Diagnostic Test (Pha) (Accu-Chek) 1 ea 02 XX Last administered on 02/09/17 02: 09; Admin Dose 1 EA; Start 02/09/17 at 02:00 Senna (Senokot) 2 tab BID PO Last administered on 02/11/17 08:48; Admin Dose 2 TAB; Start 02/08/17 at 23:00 Magnesium Hydroxide (Milk Of Mag) 30 ml DAILY PRN PO CONSTIPATION; Start at 23:00 Famotidine (Pepcid) 20 mg DAILY PO Last administered on 02/11/17 08:46; Admin Dose 20 MG; Start 02/10/17 at 09:00 Insulin Glargine (Lantus) 15 unit DAILY@20 SC Last administered on 02/10/17 20: 38; Admin Dose 15 UNIT; Start 02/09/17 at 20:00 Pantoprazole (Protonix Tab) 40 mg DAILY@06 PO Last administered on 02/11/17 06: 26; Admin Dose 40 MG; Start 02/10/17 at 06:00 Methimazole (Tapazole) 10 mg QHS PO Last administered on 02/10/17 20:26; Admin Dose 10 MG; Start 02/09/17 at 21:00 Lactobacillus Acidophilus/ Rhamnosus (Culturelle) 1 cap BID PO Last administered on 02/11/17 08:47; Admin Dose 1 CAP; Start 02/10/17 at 21:00 Amoxicillin 500 mg 500 mg TID PO Last administered on 02/11/17t 12:40; Admin Dose 500 MG; Start 02/11/17 at 09:00; Stop 02/25/17 at 08:59 Cefotaxime Sodium (Claforan 1gm/50 ml (Pmx)) 50 ml @ 100 mls/hr Q8 IVPB ; Start 02/11/17 at 15:30 GINO ROBLERO MD Feb 11, 2017 15:05
[2017-02-11] MEDS: CEFOTAXIME 1 GM/50 ML (PMX) 50 ML IVPB SCH ×2 (15:12→21:41)
[2017-02-11 19:00] VITALS: BP 141/65; RESP 19
[2017-02-11] MEDS: ATORVASTATIN 40 MG TAB PO SCH (20:28)
[2017-02-11] MEDS: METHIMAZOLE 5 MG TAB PO SCH (20:32)
[2017-02-11] MEDS: INSULIN GLARGINE [LANtus] 3 ML PEN SC SCH (20:35)
[2017-02-12] MEDS: ACETAMINOPHEN 500 MG TAB PO PRN ×2 (03:23→13:45)
[2017-02-12 05:04] LABS: ADD SCAN DIFF NO
[2017-02-12 05:12] LABS: BASOPHILS % 0.1 % (0.0-2.0); EOSINOPHILS # 0.1 10^3/ul (0.0-0.5); EOSINOPHILS % 0.5 % (0.0-7.0); HEMOGLOBIN 11.4 g/dl (12.0-16.0); LYMPHOCYTES # 1.7 10^3/ul (0.8-2.9); LYMPHOCYTES % 15.7 % (15.0-51.0); MEAN CORPUSCULAR HEMOGLOBIN 31.1 pg (29.0-33.0); MEAN CORPUSCULAR HGB CONC 33.5 g/dl (32.0-37.0); MEAN CORPUSCULAR VOLUME 92.9 fl (82.0-101.0); MEAN PLATELET VOLUME 9.6 fl (7.4-10.4); MONOCYTE # 0.7 10^3/ul (0.3-0.9); MONOCYTES % 6.1 % (0.0-11.0); NEUTROPHIL # 8.4 10^3/ul (1.6-7.5); NEUTROPHILS % 76.6 % (39.0-77.0); NUCLEATED RED BLOOD CELLS% 0.2 /100WBC (0.0-0.0); PLATELET COUNT 587 10^3/UL (140-415); RED BLOOD COUNT 3.66 10^6/ul (4.20-5.40); RED CELL DISTRIBUTION WIDTH 15.1 % (11.5-14.5); WHITE BLOOD COUNT 10.9 10^3/ul (4.8-10.8)
[2017-02-12 05:24] LABS: INR 0.94; PROTIME 12.6 Sec (12.2-14.2)
[2017-02-12 05:30] LABS: CREATININE 0.88 mg/dl (0.44-1.00); MAGNESIUM 1.6 mg/dl (1.7-2.5); PHOSPHORUS 3.2 mg/dl (2.5-4.9)
[2017-02-12] MEDS: PANTOPRAZOLE (EC) 40 MG TAB PO SCH (06:03)
[2017-02-12] MEDS: CEFOTAXIME 1 GM/50 ML (PMX) 50 ML IVPB SCH ×3 (06:03→22:43)
[2017-02-12] MEDS: INSULIN ASPART [NOVOLOG] 3 ML PEN SC SCH ×4 (07:50→20:44)
[2017-02-12 08:05] VITALS: BP 132/63; RESP 18
--- NOTE | 2017-02-12 08:34 | CONS ---
Date/Time of Note Date/Time of Note DATE: 02/12/17 TIME: 08:32 Assessment/Plan Assessment/Plan Chief Complaint/Hosp Course Vito 71-year-old Laotian female in bed. Limited Maori. She reports several day history of having had a tenderness in the left neck that came on abruptly. She denies any known history of thyroid disease however her review of systems is positive for tremor and palpitation which goes back at least 2 months. There are no fevers chills or sweats no specific weight loss although on questioning from a different direction she has had some loss of weight Problems: (1) Essential hypertension Status: Chronic Comment: Patient has adequate control on current oral medication regimen. (2) Diabetes mellitus type 2 in nonobese Status: Chronic Comment: Control is excellent especially now that off of steroids (3) Abscess of thyroid Status: Acute Comment: Awaiting ENT consult. I am somewhat concerned that we are going to be forced and the position of needing to operate on this as clinically it does not appear to be resolving with just IV antibiotics. (4) Hyperthyroidism Status: Acute Comment: On appropriate treatment without any immunosuppression or other untoward complications. Consultation Date/Type/Reason Admit Date/Time Feb 07, 2017 at 15:35 Initial Consult Date 02/08/17 Type of Consultation: Endocrinology Reason for Consultation Hyperthyroid multinodular goiter; left thyroid abscess/E. coli; diabetes mellitus type 2 Referring Provider: ERROL ESTRADA 24 HR Interval Summary Free Text/Dictation Patient indicates the pain in the left thyroid gland is actually slightly worse than yesterday. Constitutional: no complaints (Denies fevers chills or sweats) Detailed Summary Respiratory: no complaints Cardiovascular: no complaints Gastrointestinal: no complaints Exam/Review of Systems Vital Signs Vitals Vital Signs Date Time Temp Pulse Resp B/P Pulse Ox O2 Delivery O2 Flow Rate FiO2 02/12/17 08:05 98.2 71 18 132/63 94 02/09/17 16:35 Room Air Intake and Output 02/11/17 02/11/17 02/12/17 15:00 23:00 07:00 Intake Total 50 ml 700 ml 1100 ml Output Total 650 ml Balance 50 ml 700 ml 450 ml Exam Constitutional: alert, oriented Neck: supple, thyromegaly (Tender left thyroid mass) Respiratory: clear to auscultation, normal air movement Cardiovascular: nl pulses, regular rate and rhythm Results Result Diagram: 02/12/17 0444 02/12/17 0444 Results 24 hrs Laboratory Tests Test 02/11/17 12:05 02/11/17 17:13 02/11/17 20:27 02/12/17 04:44 Bedside Glucose 167 191 154 White Blood Count 10.9 H Red Blood Count 3.66 L Hemoglobin 11.4 L Hematocrit 34.0 L Mean Corpuscular Volume 92.9 Mean Corpuscular Hemoglobin 31.1 Mean Corpuscular Hemoglobin Concent 33.5 Red Cell Distribution Width 15.1 H Platelet Count 587 H Mean Platelet Volume 9.6 Neutrophils % 76.6 Lymphocytes % 15.7 Monocytes % 6.1 Eosinophils % 0.5 Basophils % 0.1 Nucleated Red Blood Cells % 0.2 H Neutrophils # 8.4 H Lymphocytes # 1.7 Monocytes # 0.7 Eosinophils # 0.1 Basophils # 0.0 Nucleated Red Blood Cells # 0.0 Prothrombin Time 12.6 Prothrombin Time Ratio 1.0 INR International Normalized Ratio 0.94 Sodium Level 138 Potassium Level 4.0 Chloride Level 102 Carbon Dioxide Level 28 Anion Gap 12 Blood Urea Nitrogen 23 H Creatinine 0.88 Glucose Level 74 # Calcium Level 9.0 Phosphorus Level 3.2 Magnesium Level 1.6 L Medications Medications Current Medications Acetaminophen (Tylenol Tab) 500 mg Q6H PRN PO PAIN AND OR ELEVATED TEMP Last administered on 02/12/17 03:23; Admin Dose 500 MG; Start 02/08/17 at 00:30 Pioglitazone HCl (Actos) 45 mg DAILY PO Last administered on 02/11/17 08:47; Admin Dose 45 MG; Start 02/08/17 at 09:00 Losartan Potassium (Cozaar) 100 mg DAILY PO Last administered on 02/11/17 08:47 ; Admin Dose 100 MG; Start 02/08/17 at 09:00 Atorvastatin Calcium (Lipitor) 40 mg HS PO Last administered on 02/11/17 20:28 ; Admin Dose 40 MG; Start 02/08/17 at 21:00 Ondansetron HCl (Zofran Inj) 4 mg Q6H PRN IV NAUSEA AND/OR VOMITING; Start 02/08 at 00:30 Miscellaneous Information 1 ea NOTE XX ; Start 02/08/17 at 01:00 Glucose (Glutose) 15 gm Q15M PRN PO DECREASED GLUCOSE; Start 02/08/17 at 01:00 Glucose (Glutose) 22.5 gm Q15M PRN PO DECREASED GLUCOSE; Start 02/08/17 at 01:00 Dextrose (D50w Syringe) 25 ml Q15M PRN IV DECREASED GLUCOSE; Start 02/08/17 at 01:00 Dextrose (D50w Syringe) 50 ml Q15M PRN IV DECREASED GLUCOSE; Start 02/08/17 at 01:00 Glucagon (Glucagen) 1 mg Q15M PRN IM DECREASED GLUCOSE; Start 02/08/17 at 01:00 Glucose (Glutose) 15 gm Q15M PRN BUCCAL DECREASED GLUCOSE; Start 02/08/17 at 01: 00 Propranolol HCl (Inderal) 10 mg TID PO Last administered on 02/11/17 20:31; Admin Dose 10 MG; Start 02/08/17 at 13:00 Diagnostic Test (Pha) (Accu-Chek) 1 ea 02 XX Last administered on 02/09/17 02: 09; Admin Dose 1 EA; Start 02/09/17 at 02:00 Senna (Senokot) 2 tab BID PO Last administered on 02/11/17 08:48; Admin Dose 2 TAB; Start 02/08/17 at 23:00 Magnesium Hydroxide (Milk Of Mag) 30 ml DAILY PRN PO CONSTIPATION; Start at 23:00 Famotidine (Pepcid) 20 mg DAILY PO Last administered on 02/11/17 08:46; Admin Dose 20 MG; Start 02/10/17 at 09:00 Insulin Glargine (Lantus) 15 unit DAILY@20 SC Last administered on 02/11/17 20: 35; Admin Dose 15 UNIT; Start 02/09/17 at 20:00 Pantoprazole (Protonix Tab) 40 mg DAILY@06 PO Last administered on 02/12/17 06 :03; Admin Dose 40 MG; Start 02/10/17 at 06:00 Methimazole (Tapazole) 10 mg QHS PO Last administered on 02/11/17 20:32; Admin Dose 10 MG; Start 02/09/17 at 21:00 Lactobacillus Acidophilus/ Rhamnosus (Culturelle) 1 cap BID PO Last administered on 02/11/17 20:33; Admin Dose 1 CAP; Start 02/10/17 at 21:00 Amoxicillin 500 mg 500 mg TID PO Last administered on 02/11/17 20:33; Admin Dose 500 MG; Start 02/11/17 at 09:00; Stop 02/25/17 at 08:59 Cefotaxime Sodium (Claforan 1gm/50 ml (Pmx)) 50 ml @ 100 mls/hr Q8 IVPB Last administered on 02/12/17 06:03; Admin Dose 100 MLS/HR; Start 02/11/17 at 15:30 YONATAN HERNANDEZ MD Feb 12, 2017 08:34
[2017-02-12] MEDS: PIOGLITAZONE 45 MG TAB PO SCH (08:57)
[2017-02-12] MEDS: SENNA TAB PO SCH ×2 (08:57→20:41)
[2017-02-12] MEDS: LACTOBACILLUS RHAMNOSUS CAP PO SCH ×2 (08:57→20:41)
[2017-02-12] MEDS: AMOXICILLIN 500 MG CAP PO SCH ×3 (08:57→20:41)
[2017-02-12] MEDS: FAMOTIDINE 20 MG TAB PO SCH (08:57)
[2017-02-12] MEDS: metFORMIN 500 MG TAB PO SCH ×2 (08:58→18:14)
[2017-02-12] MEDS: LOSARTAN 50 MG TAB PO SCH (08:59)
[2017-02-12] MEDS: PROPRANOLOL 10 MG TAB PO SCH ×3 (08:59→20:42)
[2017-02-12] MEDS ORDERED: MAGNESIUM SULFATE 2 GM/50 ML 50 ML IVPB ONE (13:30)
--- NOTE | 2017-02-12 14:37 | HP ---
DATE OF ADMISSION: 02/07/2017 HISTORY OF PRESENT ILLNESS: Paul Cardoza is a 71-year-old [place] woman with a left-sided 6.7-c m thyroid nodule which appears to be infected and now an abscess. Needle biopsy was nondiagnostic, yet culture was positive for E. coli. ENT was consulted for this reason. PAST MEDICAL HISTORY: Negative for any heart, lung, kidney or liver disease. PAST SURGICAL HISTORY: None. ALLERGIES: NO KNOWN DRUG ALLERGIES. MEDICATIONS: Medication list was reviewed. SOCIAL HISTORY: Negative for tobacco, alcohol or drug abuse. FAMILY HISTORY: Negative for any heart, lung, kidney or liver disease. REVIEW OF SYSTEMS: A 12-point review of systems was otherwise noncontributory. PHYSICAL EXAMINATION: HEENT: The oral cavity and oropharynx showed the tongue firm and mouth normal. Oropharynx is clear . NECK: Reveals no lymphadenopathy or thyromegaly. Her trachea appears to be midline. She does have a 6-cm left tender thyroid mass, but there is really no significant overlying edema or erythema, an d there is no significant subcutaneous induration. I suspect this is a simple infected thyroid cyst , which unless technically an abscess yet, it has not caused any extrathyroidal inflammation. When discussing it with her, the degree of pain is about the same as it was yesterday. We tried to call her daughters, but none were available and messages were left. IMPRESSION: Thyroid nodule, thyroid abscess. PLAN: At this point, I discussed this with Dr. Caputo. He favors I and D of this and I would agree. Will try to set this up at the earliest convenience. She has already had lunch today, so we might be able to do this at some point tomorrow. Dictated By: RADHA RUIZ/SILVERIO Conf#: [id number] DID#: [id number]
[2017-02-12 19:00] VITALS: BP 118/56; RESP 18
--- NOTE | 2017-02-12 20:19 | PN ---
Date/Time of Note Date/Time of Note DATE: 02/12/17 TIME: 20:17 Assessment/Plan VTE Prophylaxis VTE Prophylaxis Intervention: contraindicated VTE Contraindication Reason: bleeding Lines/Catheters IV Catheter Type (from Nrsg): Saline Lock Urinary Cath still in place: No Assessment/Plan Chief Complaint/Hosp Course S: 02/08: lt neck pain. No diarrhea palpitations. Possible wt loss. No fh of Ca or thyroid. No dysphagia dysarthria. Feels better than yesterday. 02/08: potentially subjective fever chills. No dysphagia dysarthria. 02/09: No events 02/11: No events 02/12: Some thyroid pain this morning. No fever dyspnea chest pain. O: Vss PE No pallor; nt lt thyroid gland Reg ctab Bs+; nt nd; no r/r/g no edema A/P 1. Lt Thyroid Mass; stable, sp biopsy. Pathology w e coli. R-iodine in maybe 2 mnth? -DC steroids. Potentially thyroglossal duct cyst/obstruction. MNG noted as well. -Low periop risk, May proceed forward from medical standpoint. -For I&D. Updated daughter (Yovani -[phone]) in [place], who requests to speak with ENT as well. 2. Diabetes/metabolic syndrome 3. Dyslipidemia 4. Anemia; occult positive. Outpt screening colonoscopy if patient chooses. Problems: Exam/Review of Systems Vital Signs Vitals Vital Signs Date Time Temp Pulse Resp B/P Pulse Ox O2 Delivery O2 Flow Rate FiO2 02/12/17 08:05 98.2 71 18 132/63 94 02/09/17 16:35 Room Air Intake and Output 02/11/17 02/11/17 02/12/17 15:00 23:00 07:00 Intake Total 50 ml 700 ml 1100 ml Output Total 650 ml Balance 50 ml 700 ml 450 ml Results Result Diagram: 02/12/17 0444 02/12/17 0444 Results 24 hrs Laboratory Tests Test 02/11/17 20:27 02/12/17 04:44 02/12/17 08:45 02/12/17 12:57 Bedside Glucose 154 78 83 White Blood Count 10.9 H Red Blood Count 3.66 L Hemoglobin 11.4 L Hematocrit 34.0 L Mean Corpuscular Volume 92.9 Mean Corpuscular Hemoglobin 31.1 Mean Corpuscular Hemoglobin Concent 33.5 Red Cell Distribution Width 15.1 H Platelet Count 587 H Mean Platelet Volume 9.6 Neutrophils % 76.6 Lymphocytes % 15.7 Monocytes % 6.1 Eosinophils % 0.5 Basophils % 0.1 Nucleated Red Blood Cells % 0.2 H Neutrophils # 8.4 H Lymphocytes # 1.7 Monocytes # 0.7 Eosinophils # 0.1 Basophils # 0.0 Nucleated Red Blood Cells # 0.0 Prothrombin Time 12.6 Prothrombin Time Ratio 1.0 INR International Normalized Ratio 0.94 Sodium Level 138 Potassium Level 4.0 Chloride Level 102 Carbon Dioxide Level 28 Anion Gap 12 Blood Urea Nitrogen 23 H Creatinine 0.88 Glucose Level 74 # Calcium Level 9.0 Phosphorus Level 3.2 Magnesium Level 1.6 L Test 02/12/17 17:50 Bedside Glucose 91 Medications Medications Current Medications Acetaminophen (Tylenol Tab) 500 mg Q6H PRN PO PAIN AND OR ELEVATED TEMP Last administered on 02/12/17 13:45; Admin Dose 500 MG; Start 02/08/17 at 00:30 Pioglitazone HCl (Actos) 45 mg DAILY PO Last administered on 02/12/17 08:57; Admin Dose 45 MG; Start 02/08/17 at 09:00 Losartan Potassium (Cozaar) 100 mg DAILY PO Last administered on 02/12/17 08: 59; Admin Dose 100 MG; Start 02/08/17 at 09:00 Atorvastatin Calcium (Lipitor) 40 mg HS PO Last administered on 02/11/17 20:28 ; Admin Dose 40 MG; Start 02/08/17 at 21:00 Ondansetron HCl (Zofran Inj) 4 mg Q6H PRN IV NAUSEA AND/OR VOMITING; Start 02/08 at 00:30 Miscellaneous Information 1 ea NOTE XX ; Start 02/08/17 at 01:00 Glucose (Glutose) 15 gm Q15M PRN PO DECREASED GLUCOSE; Start 02/08/17 at 01:00 Glucose (Glutose) 22.5 gm Q15M PRN PO DECREASED GLUCOSE; Start 02/08/17 at 01:00 Dextrose (D50w Syringe) 25 ml Q15M PRN IV DECREASED GLUCOSE; Start 02/08/17 at 01:00 Dextrose (D50w Syringe) 50 ml Q15M PRN IV DECREASED GLUCOSE; Start 02/08/17 at 01:00 Glucagon (Glucagen) 1 mg Q15M PRN IM DECREASED GLUCOSE; Start 02/08/17 at 01:00 Glucose (Glutose) 15 gm Q15M PRN BUCCAL DECREASED GLUCOSE; Start 02/08/17 at 01: 00 Propranolol HCl (Inderal) 10 mg TID PO Last administered on 02/12/17 13:48; Admin Dose 10 MG; Start 02/08/17 at 13:00 Diagnostic Test (Pha) (Accu-Chek) 1 ea 02 XX Last administered on 02/09/17 02: 09; Admin Dose 1 EA; Start 02/09/17 at 02:00 Senna (Senokot) 2 tab BID PO Last administered on 02/12/17 08:57; Admin Dose 2 TAB; Start 02/08/17 at 23:00 Magnesium Hydroxide (Milk Of Mag) 30 ml DAILY PRN PO CONSTIPATION; Start at 23:00 Famotidine (Pepcid) 20 mg DAILY PO Last administered on 02/12/17 08:57; Admin Dose 20 MG; Start 02/10/17 at 09:00 Insulin Glargine (Lantus) 15 unit DAILY@20 SC Last administered on 02/11/17 20: 35; Admin Dose 15 UNIT; Start 02/09/17 at 20:00 Pantoprazole (Protonix Tab) 40 mg DAILY@06 PO Last administered on 02/12/17 06 :03; Admin Dose 40 MG; Start 02/10/17 at 06:00 Methimazole (Tapazole) 10 mg QHS PO Last administered on 02/11/17 20:32; Admin Dose 10 MG; Start 02/09/17 at 21:00 Lactobacillus Acidophilus/ Rhamnosus (Culturelle) 1 cap BID PO Last administered on 02/12/17 08:57; Admin Dose 1 CAP; Start 02/10/17 at 21:00 Amoxicillin 500 mg 500 mg TID PO Last administered on 02/12/17 13:45; Admin Dose 500 MG; Start 02/11/17 at 09:00; Stop 02/25/17 at 08:59 Cefotaxime Sodium (Claforan 1gm/50 ml (Pmx)) 50 ml @ 100 mls/hr Q8 IVPB Last administered on 02/12/17t 15:00; Admin Dose 100 MLS/HR; Start 02/11/17 at 15:30 GINO ROBLERO MD Feb 12, 2017 20:19
[2017-02-12] MEDS: ATORVASTATIN 40 MG TAB PO SCH (20:41)
[2017-02-12] MEDS: METHIMAZOLE 5 MG TAB PO SCH (20:41)
[2017-02-12] MEDS: INSULIN GLARGINE [LANtus] 3 ML PEN SC SCH (20:46)
[2017-02-13] VITALS (17 sets, daily range): BP systolic 105–160; BP diastolic 50–77; PULSE 76–98; RESP 16–21
[2017-02-13] MEDS: ACCU-CHEK XX SCH (01:10)
[2017-02-13 05:13] LABS: ADD SCAN DIFF NO
[2017-02-13 05:26] LABS: EOSINOPHILS # 0.5 10^3/ul (0.0-0.5); EOSINOPHILS % 4.3 % (0.0-7.0); HEMATOCRIT 34.9 % (37.0-47.0); HEMOGLOBIN 11.6 g/dl (12.0-16.0); LYMPHOCYTES # 1.3 10^3/ul (0.8-2.9); MEAN CORPUSCULAR HEMOGLOBIN 31.4 pg (29.0-33.0); MEAN CORPUSCULAR HGB CONC 33.2 g/dl (32.0-37.0); MEAN CORPUSCULAR VOLUME 94.6 fl (82.0-101.0); MEAN PLATELET VOLUME 9.8 fl (7.4-10.4); MONOCYTE # 0.7 10^3/ul (0.3-0.9); MONOCYTES % 5.9 % (0.0-11.0); NEUTROPHIL # 8.4 10^3/ul (1.6-7.5); NEUTROPHILS % 76.8 % (39.0-77.0); PLATELET COUNT 493 10^3/UL (140-415); RED BLOOD COUNT 3.69 10^6/ul (4.20-5.40); RED CELL DISTRIBUTION WIDTH 15.1 % (11.5-14.5)
[2017-02-13] MEDS: PANTOPRAZOLE (EC) 40 MG TAB PO SCH (05:32)
[2017-02-13 05:35] LABS: PROTIME 13.2 Sec (12.2-14.2)
[2017-02-13 05:36] LABS: PARTIAL THROMBOPLASTIN TIME 34.5 Sec (25.0-35.0)
[2017-02-13] MEDS: CEFOTAXIME 1 GM/50 ML (PMX) 50 ML IVPB SCH ×3 (05:40→22:14)
[2017-02-13 05:44] LABS: CALCIUM 9.1 mg/dl (8.4-10.2); CREATININE 0.79 mg/dl (0.44-1.00); MAGNESIUM 1.9 mg/dl (1.7-2.5); POTASSIUM 4.4 mmol/L (3.5-5.1)
--- NOTE | 2017-02-13 07:41 | CONS ---
Date/Time of Note Date/Time of Note DATE: 02/13/17 TIME: 07:36 Assessment/Plan Assessment/Plan Chief Complaint/Hosp Course Vito 71-year-old Laotian female in bed. Limited Occitan. She reports several day history of having had a tenderness in the left neck that came on abruptly. She denies any known history of thyroid disease however her review of systems is positive for tremor and palpitation which goes back at least 2 months. There are no fevers chills or sweats no specific weight loss although on questioning from a different direction she has had some loss of weight Problems: (1) Hyperthyroidism Status: Acute Comment: On antithyroid drug therapy and slowly cooling down (2) Abscess of thyroid Status: Acute Comment: For IND today under the guidance of our steamed ENT colleague Dr. Dickens (3) Essential hypertension Status: Chronic Comment: Well-controlled (4) Hyperlipidemia Status: Chronic Comment: Well-controlled Qualifiers: Hyperlipidemia type: pure hypercholesterolemia Qualified Code: E78.00 - Pure hypercholesterolemia (5) Anemia Status: Acute Comment: She had heme positive stools. This will need to be worked up as an outpatient with a GI tract evaluation. Qualifiers: Anemia type: unspecified type Qualified Code: D64.9 - Anemia, unspecified type Consultation Date/Type/Reason Admit Date/Time Feb 07, 2017 at 15:35 Initial Consult Date 02/08/17 Type of Consultation: Endocrinology Reason for Consultation Hyperthyroidism; left thyroid abscess; Referring Provider: ERROL ESTRADA 24 HR Interval Summary Free Text/Dictation Patient reports she is hungry and would like something to drink. She is n.p.o. at this time for procedure Constitutional: no complaints (No fevers chills or sweats) Exam/Review of Systems Vital Signs Vitals Vital Signs Date Time Temp Pulse Resp B/P Pulse Ox O2 Delivery O2 Flow Rate FiO2 02/13/17 07:21 98.8 80 19 130/63 99 02/09/17 16:35 Room Air Intake and Output 02/12/17 02/12/17 02/13/17 15:00 23:00 07:00 Intake Total 240 ml 820 ml Output Total 700 ml Balance 240 ml 120 ml Exam Constitutional: alert, oriented Neck: other, supple Respiratory: clear to auscultation (Left thyroid nodule still exquisitely tender), normal air movement Cardiovascular: nl pulses, regular rate and rhythm Gastrointestinal: nl liver, spleen, non-tender, soft Results Result Diagram: 02/13/17 0433 02/13/17 0433 Results 24 hrs Laboratory Tests Test 02/12/17 08:45 02/12/17 12:57 02/12/17 17:50 02/12/17 20:43 Bedside Glucose 78 83 91 119 Test 02/13/17 04:33 White Blood Count 11.0 H Red Blood Count 3.69 L Hemoglobin 11.6 L Hematocrit 34.9 L Mean Corpuscular Volume 94.6 Mean Corpuscular Hemoglobin 31.4 Mean Corpuscular Hemoglobin Concent 33.2 Red Cell Distribution Width 15.1 H Platelet Count 493 H Mean Platelet Volume 9.8 Neutrophils % 76.8 Lymphocytes % 12.0 L Monocytes % 5.9 Eosinophils % 4.3 Basophils % 0.0 Nucleated Red Blood Cells % 0.0 Neutrophils # 8.4 H Lymphocytes # 1.3 Monocytes # 0.7 Eosinophils # 0.5 Basophils # 0.0 Nucleated Red Blood Cells # 0.0 Prothrombin Time 13.2 Prothrombin Time Ratio 1.0 INR International Normalized Ratio 1.00 Activated Partial Thromboplast Time 34.5 Sodium Level 136 Potassium Level 4.4 Chloride Level 98 Carbon Dioxide Level 29 Anion Gap 13 Blood Urea Nitrogen 18 Creatinine 0.79 Glucose Level 112 Calcium Level 9.1 Magnesium Level 1.9 Medications Medications Current Medications Acetaminophen (Tylenol Tab) 500 mg Q6H PRN PO PAIN AND OR ELEVATED TEMP Last administered on 02/12/17 13:45; Admin Dose 500 MG; Start 02/08/17 at 00:30 Losartan Potassium (Cozaar) 100 mg DAILY PO Last administered on 02/12/17 08: 59; Admin Dose 100 MG; Start 02/08/17 at 09:00 Atorvastatin Calcium (Lipitor) 40 mg HS PO Last administered on 02/12/17 20:41 ; Admin Dose 40 MG; Start 02/08/17 at 21:00 Ondansetron HCl (Zofran Inj) 4 mg Q6H PRN IV NAUSEA AND/OR VOMITING; Start 02/08 at 00:30 Miscellaneous Information 1 ea NOTE XX ; Start 02/08/17 at 01:00 Glucose (Glutose) 15 gm Q15M PRN PO DECREASED GLUCOSE; Start 02/08/17 at 01:00 Glucose (Glutose) 22.5 gm Q15M PRN PO DECREASED GLUCOSE; Start 02/08/17 at 01:00 Dextrose (D50w Syringe) 25 ml Q15M PRN IV DECREASED GLUCOSE; Start 02/08/17 at 01:00 Dextrose (D50w Syringe) 50 ml Q15M PRN IV DECREASED GLUCOSE; Start 02/08/17 at 01:00 Glucagon (Glucagen) 1 mg Q15M PRN IM DECREASED GLUCOSE; Start 02/08/17 at 01:00 Glucose (Glutose) 15 gm Q15M PRN BUCCAL DECREASED GLUCOSE; Start 02/08/17 at 01: 00 Propranolol HCl (Inderal) 10 mg TID PO Last administered on 02/12/17 20:42; Admin Dose 10 MG; Start 02/08/17 at 13:00 Diagnostic Test (Pha) (Accu-Chek) 1 ea 02 XX Last administered on 02/09/17 02: 09; Admin Dose 1 EA; Start 02/09/17 at 02:00 Senna (Senokot) 2 tab BID PO Last administered on 02/12/17 20:41; Admin Dose 2 TAB; Start 02/08/17 at 23:00 Magnesium Hydroxide (Milk Of Mag) 30 ml DAILY PRN PO CONSTIPATION; Start at 23:00 Famotidine (Pepcid) 20 mg DAILY PO Last administered on 02/12/17 08:57; Admin Dose 20 MG; Start 02/10/17 at 09:00 Insulin Glargine (Lantus) 15 unit DAILY@20 SC Last administered on 02/12/17 20 :46; Admin Dose 15 UNIT; Start 02/09/17 at 20:00 Pantoprazole (Protonix Tab) 40 mg DAILY@06 PO Last administered on 02/12/17 06 :03; Admin Dose 40 MG; Start 02/10/17 at 06:00 Methimazole (Tapazole) 10 mg QHS PO Last administered on 02/12/17 20:41; Admin Dose 10 MG; Start 02/09/17 at 21:00 Lactobacillus Acidophilus/ Rhamnosus (Culturelle) 1 cap BID PO Last administered on 02/12/17 20:41; Admin Dose 1 CAP; Start 6/8/17 at 21:00 Amoxicillin 500 mg 500 mg TID PO Last administered on 02/12/17 20:41; Admin Dose 500 MG; Start 02/11/17 at 09:00; Stop 02/25/17 at 08:59 Cefotaxime Sodium (Claforan 1gm/50 ml (Pmx)) 50 ml @ 100 mls/hr Q8 IVPB Last administered on 02/13/17 05:40; Admin Dose 100 MLS/HR; Start 02/11/17 at 15:30 Acetaminophen/ Hydrocodone Bitart ([place] (7.5-325)) 1 tab Q4H PRN PO MODERATE PAIN LEVEL 4-6; Start 02/12/17 at 20:30 YONATAN HERNANDEZ MD Feb 13, 2017 07:41
[2017-02-13] MEDS: metFORMIN 500 MG TAB PO SCH ×2 (07:50→18:10)
[2017-02-13] MEDS: LACTOBACILLUS RHAMNOSUS CAP PO SCH ×2 (09:00→20:58)
[2017-02-13] MEDS: SENNA TAB PO SCH ×2 (09:00→20:58)
[2017-02-13] MEDS: LOSARTAN 50 MG TAB PO SCH (09:12)
[2017-02-13] MEDS: INSULIN ASPART [NOVOLOG] 3 ML PEN SC SCH ×4 (09:12→22:20)
[2017-02-13] MEDS: AMOXICILLIN 500 MG CAP PO SCH ×3 (09:12→20:58)
[2017-02-13] MEDS: PROPRANOLOL 10 MG TAB PO SCH ×3 (09:13→20:58)
[2017-02-13] MEDS: FAMOTIDINE 20 MG TAB PO SCH (09:13)
--- NOTE | 2017-02-13 13:33 | HPN ---
Date/Time of Note Date/Time of Note DATE: 02/13/17 TIME: 13:33 Interval H&P Admission Note Pt. seen H&P reviewed: No system changes RADHA SOLOMON MD Feb 13, 2017 13:33
[2017-02-13] MEDS ORDERED: SUCCINYLCHOLINE CHLORIDE 100 MG/5 ML SYG IV ONE (14:06)
[2017-02-13] MEDS ORDERED: PROPOFOL 20 ML ONE (14:06)
[2017-02-13] MEDS ORDERED: MIDAZOLAM 1 MG/ML 2 ML INJ ONE (14:06)
[2017-02-13] MEDS ORDERED: PHENYLephrine (100 MCG/ML) 5ML SYG ONE (14:14)
[2017-02-13] MEDS ORDERED: ONDANSETRON 4 MG INJ ONE (14:18)
[2017-02-13] MEDS ORDERED: DEXAMETHASONE 4 MG/ML 1 ML INJ ONE (14:18)
[2017-02-13] MEDS ORDERED: FAMOTIDINE 20 MG INJ ONE (14:18)
[2017-02-13] MEDS ORDERED: BUPIVACAINE 0.5%/EPI (SDV) 30 ML INJ ONE (14:21)
[2017-02-13] MEDS ORDERED: BUPIVACAINE 0.5%/EPI (SDV) 30 ML INJ INJ ONE (14:22)
[2017-02-13] MEDS ORDERED: EPHEDrine SULFATE 50 MG/5 ML SYG ONE (14:23)
[2017-02-13] MEDS ORDERED: hydrALAzine 20 MG INJ IV PRN (15:00)
[2017-02-13] MEDS ORDERED: HYDROmorphONE (0.2 MG/ML) 10ML SYG IV PRN ×2 (15:00)
[2017-02-13] MEDS ORDERED: MEPERIDINE 25 MG INJ IV PRN (15:00)
[2017-02-13] MEDS ORDERED: DIPHENHYDRAMINE 50 MG INJ IV PRN (15:00)
[2017-02-13] MEDS ORDERED: hydrALAzine 20 MG INJ ONE (15:04)
--- NOTE | 2017-02-13 19:44 | OPR ---
DATE OF OPERATION: PREOPERATIVE DIAGNOSIS: Thyroid abscess. POSTOPERATIVE DIAGNOSIS: Thyroid abscess. PROCEDURE: Incision and drainage of left thyroid abscess. SURGEON: Radha Dickens MD ANESTHESIA: General anesthesia. COMPLICATIONS: None. ESTIMATED BLOOD LOSS: Minimal. PROCEDURE IN DETAIL: After informed consent was obtained, the patient was brought to the operating room and placed in supine position. General anesthesia was then induced. Incision was marked out a nd injected with approximately 4 mL of 0.25% Marcaine with 1:100,000 epinephrine. After sufficient period of time had elapsed, a small incision was made using a 15 blade. Using electrocautery, we we re able to get down to the platysma. This was divided. Dissection was undertaken and we got down t o strap here. ____ incision overlying the strap to get to the thyroid. Here, we identified the cys t, dissected out superficially and entered using a small clamp. The clamp was used to break up any loculations. Cultures were obtained. The cyst was suctioned completely. At this point, a Melissa drain was placed and fixated using multiple simple nylon sutures. A dressing was applied. The maryanne ent was then awakened, transferred to recovery room in stable condition. Dictated By: RADHA RUIZ/NTS Conf#: [id number] DID#: [id number] CC: ERROL ESTRADA MD;*End*
[2017-02-13] MEDS: METHIMAZOLE 5 MG TAB PO SCH (20:58)
[2017-02-13] MEDS: ATORVASTATIN 40 MG TAB PO SCH (20:58)
[2017-02-13] MEDS: INSULIN GLARGINE [LANtus] 3 ML PEN SC SCH (21:01)
--- NOTE | 2017-02-13 23:06 | PN ---
Date/Time of Note Date/Time of Note DATE: 02/13/17 TIME: 23:04 Assessment/Plan VTE Prophylaxis VTE Prophylaxis Intervention: ambulation Lines/Catheters IV Catheter Type (from Nrs): Saline Lock Urinary Cath still in place: No Assessment/Plan Chief Complaint/Hosp Course S: 02/08: lt neck pain. No diarrhea palpitations. Possible wt loss. No fh of Ca or thyroid. No dysphagia dysarthria. Feels better than yesterday. 02/08: potentially subjective fever chills. No dysphagia dysarthria. 02/09: No events 02/11: No events 02/12: Some thyroid pain this morning. No fever dyspnea chest pain. 02/13: sp I&D O: Vss PE -deferred; in surgey A/P 1. Lt Thyroid Mass; stable, sp biopsy. Pathology w e coli. R-iodine in maybe 2 mnth? -DC steroids. Potentially thyroglossal duct cyst/obstruction. MNG noted as well. -Sp I&D. Updated daughter (Yovani -[phone]) in [place], who requests to speak with ENT as well. 2. Diabetes/metabolic syndrome 3. Dyslipidemia 4. Anemia; occult positive. Outpt GI eval. Problems: Exam/Review of Systems Vital Signs Vitals Vital Signs Date Time Temp Pulse Resp B/P Pulse Ox O2 Delivery O2 Flow Rate FiO2 02/13/17 19:45 97.5 74 20 105/54 98 02/13/17 18:30 Nasal Cannula 2.0 Intake and Output 02/12/17 02/12/17 02/13/17 15:00 23:00 07:00 Intake Total 240 ml 820 ml Output Total 700 ml Balance 240 ml 120 ml Results Result Diagram: 02/13/17 0433 02/13/17 0433 Results 24 hrs Laboratory Tests Test 02/13/17 04:33 02/13/17 08:56 02/13/17 17:49 02/13/17 20:54 White Blood Count 11.0 H Red Blood Count 3.69 L Hemoglobin 11.6 L Hematocrit 34.9 L Mean Corpuscular Volume 94.6 Mean Corpuscular Hemoglobin 31.4 Mean Corpuscular Hemoglobin Concent 33.2 Red Cell Distribution Width 15.1 H Platelet Count 493 H Mean Platelet Volume 9.8 Neutrophils % 76.8 Lymphocytes % 12.0 L Monocytes % 5.9 Eosinophils % 4.3 Basophils % 0.0 Nucleated Red Blood Cells % 0.0 Neutrophils # 8.4 H Lymphocytes # 1.3 Monocytes # 0.7 Eosinophils # 0.5 Basophils # 0.0 Nucleated Red Blood Cells # 0.0 Prothrombin Time 13.2 Prothrombin Time Ratio 1.0 INR International Normalized Ratio 1.00 Activated Partial Thromboplast Time 34.5 Sodium Level 136 Potassium Level 4.4 Chloride Level 98 Carbon Dioxide Level 29 Anion Gap 13 Blood Urea Nitrogen 18 Creatinine 0.79 Glucose Level 112 Calcium Level 9.1 Magnesium Level 1.9 Bedside Glucose 111 265 H 210 Test 02/13/17 22:17 Bedside Glucose 192 Medications Medications Current Medications Acetaminophen (Tylenol Tab) 500 mg Q6H PRN PO PAIN AND OR ELEVATED TEMP Last administered on 02/12/17 13:45; Admin Dose 500 MG; Start 02/08/17 at 00:30 Losartan Potassium (Cozaar) 100 mg DAILY PO Last administered on 02/13/17 09: 12; Admin Dose 100 MG; Start 02/08/17 at 09:00 Atorvastatin Calcium (Lipitor) 40 mg HS PO Last administered on 02/13/17 20:58 ; Admin Dose 40 MG; Start 02/08/17 at 21:00 Ondansetron HCl (Zofran Inj) 4 mg Q6H PRN IV NAUSEA AND/OR VOMITING; Start 02/08 at 00:30 Miscellaneous Information 1 ea NOTE XX ; Start 02/08/17 at 01:00 Glucose (Glutose) 15 gm Q15M PRN PO DECREASED GLUCOSE; Start 02/08/17 at 01:00 Glucose (Glutose) 22.5 gm Q15M PRN PO DECREASED GLUCOSE; Start 02/08/17 at 01:00 Dextrose (D50w Syringe) 25 ml Q15M PRN IV DECREASED GLUCOSE; Start 02/08/17 at 01:00 Dextrose (D50w Syringe) 50 ml Q15M PRN IV DECREASED GLUCOSE; Start 02/08/17 at 01:00 Glucagon (Glucagen) 1 mg Q15M PRN IM DECREASED GLUCOSE; Start 02/08/17 at 01:00 Glucose (Glutose) 15 gm Q15M PRN BUCCAL DECREASED GLUCOSE; Start 02/08/17 at 01: 00 Propranolol HCl (Inderal) 10 mg TID PO Last administered on 02/13/17 20:58; Admin Dose 10 MG; Start 02/08/17 at 13:00 Diagnostic Test (Pha) (Accu-Chek) 1 ea 02 XX Last administered on 02/09/17 02: 09; Admin Dose 1 EA; Start 02/09/17 at 02:00 Senna (Senokot) 2 tab BID PO Last administered on 02/13/17 20:58; Admin Dose 2 TAB; Start 02/08/17 at 23:00 Magnesium Hydroxide (Milk Of Mag) 30 ml DAILY PRN PO CONSTIPATION; Start at 23:00 Famotidine (Pepcid) 20 mg DAILY PO Last administered on 02/13/17 09:13; Admin Dose 20 MG; Start 02/10/17 at 09:00 Insulin Glargine (Lantus) 15 unit DAILY@20 SC Last administered on 02/13/17 21 :01; Admin Dose 15 UNIT; Start 02/09/17 at 20:00 Pantoprazole (Protonix Tab) 40 mg DAILY@06 PO Last administered on 02/12/17 06 :03; Admin Dose 40 MG; Start 02/10/17 at 06:00 Methimazole (Tapazole) 10 mg QHS PO Last administered on 02/13/17 20:58; Admin Dose 10 MG; Start 02/09/17 at 21:00 Lactobacillus Acidophilus/ Rhamnosus (Culturelle) 1 cap BID PO Last administered on 02/13/17 20:58; Admin Dose 1 CAP; Start 02/10/17 at 21:00 Amoxicillin 500 mg 500 mg TID PO Last administered on 02/13/17 20:58; Admin Dose 500 MG; Start 02/11/17 at 09:00; Stop 02/25/17 at 08:59 Cefotaxime Sodium (Claforan 1gm/50 ml (Pmx)) 50 ml @ 100 mls/hr Q8 IVPB Last administered on 02/13/17 22:14; Admin Dose 100 MLS/HR; Start 02/11/17 at 15:30 Acetaminophen/ Hydrocodone Bitart ([place] (7.5-325)) 1 tab Q4H PRN PO MODERATE PAIN LEVEL 4-6; Start 6/10/17 at 20:30 GINO ROBLERO MD Feb 13, 2017 23:05
[2017-02-14 00:31] VITALS: BP 102/52; RESP 19
[2017-02-14] MEDS: ACCU-CHEK XX SCH (01:28)
[2017-02-14 05:48] LABS: ADD SCAN DIFF NO
[2017-02-14] MEDS: CEFOTAXIME 1 GM/50 ML (PMX) 50 ML IVPB SCH ×3 (05:48→21:38)
[2017-02-14] MEDS: PANTOPRAZOLE (EC) 40 MG TAB PO SCH (05:48)
[2017-02-14 06:08] LABS: BASOPHILS % 0.1 % (0.0-2.0); EOSINOPHILS # 0.4 10^3/ul (0.0-0.5); EOSINOPHILS % 3.3 % (0.0-7.0); HEMATOCRIT 33.3 % (37.0-47.0); HEMOGLOBIN 11.1 g/dl (12.0-16.0); LYMPHOCYTES # 1.1 10^3/ul (0.8-2.9); LYMPHOCYTES % 9.6 % (15.0-51.0); MEAN CORPUSCULAR HEMOGLOBIN 31.8 pg (29.0-33.0); MEAN CORPUSCULAR HGB CONC 33.3 g/dl (32.0-37.0); MEAN CORPUSCULAR VOLUME 95.4 fl (82.0-101.0); MEAN PLATELET VOLUME 10.1 fl (7.4-10.4); MONOCYTE # 0.6 10^3/ul (0.3-0.9); MONOCYTES % 5.2 % (0.0-11.0); NEUTROPHIL # 9.1 10^3/ul (1.6-7.5); PLATELET COUNT 468 10^3/UL (140-415); RED BLOOD COUNT 3.49 10^6/ul (4.20-5.40); RED CELL DISTRIBUTION WIDTH 14.8 % (11.5-14.5); WHITE BLOOD COUNT 11.2 10^3/ul (4.8-10.8)
[2017-02-14 06:24] LABS: CREATININE 0.91 mg/dl (0.44-1.00); PHOSPHORUS 2.9 mg/dl (2.5-4.9)
[2017-02-14 07:29] VITALS: BP 107/55; RESP 16
[2017-02-14] MEDS: PROPRANOLOL 10 MG TAB PO SCH ×3 (09:00→20:53)
[2017-02-14] MEDS: metFORMIN 500 MG TAB PO SCH ×2 (09:05→17:45)
[2017-02-14] MEDS: LACTOBACILLUS RHAMNOSUS CAP PO SCH ×2 (09:05→20:52)
[2017-02-14] MEDS: FAMOTIDINE 20 MG TAB PO SCH (09:05)
[2017-02-14] MEDS: LOSARTAN 50 MG TAB PO SCH (09:05)
[2017-02-14] MEDS: SENNA TAB PO SCH ×2 (09:05→20:53)
[2017-02-14] MEDS: AMOXICILLIN 500 MG CAP PO SCH ×3 (09:06→20:52)
[2017-02-14] MEDS: INSULIN ASPART [NOVOLOG] 3 ML PEN SC SCH ×4 (09:09→21:00)
--- NOTE | 2017-02-14 09:15 | PN ---
Date/Time of Note Date/Time of Note DATE: 02/14/17 TIME: 09:04 Assessment/Plan VTE Prophylaxis VTE Prophylaxis Intervention: SCD's Lines/Catheters IV Catheter Type (from Nrs): Peripheral IV Urinary Cath still in place: No Assessment/Plan Assessment/Plan 71 yo F with : 1. Left thyroid mass with abscess status post biopsy and now incision and drainage 02/13/17 * cultures growing E coli 2. Diabetes type 2: hemoglobin A1c: 6.8 3. Dyslipidemia 4. Hyperthyroidism on methimazole likely secondary to #1 5. Hypertension: controlled 6. Chronic normocytic anemia 7. Mild transaminitis: now resolved PLAN: * Continue routine postop care * f/u final culture results / ID consult for home abx recommendations * Follow ID and ENT final recommendations * Appreciate endocrinology review, continue to follow their recommendations regarding methimazole and diabetes management * Continue all supportive care and pain control. Prophylaxis: SCDs Subjective 24 Hr Interval Summary Free Text/Dictation patient is doing well mild pain with swallowing Exam/Review of Systems Vital Signs Vitals Vital Signs Date Time Temp Pulse Resp B/P Pulse Ox O2 Delivery O2 Flow Rate FiO2 02/14/17 07:29 98.3 67 16 107/55 93 02/13/17 18:30 Nasal Cannula 2.0 Intake and Output 02/13/17 02/13/17 02/14/17 15:00 23:00 07:00 Intake Total 500 ml 820 ml 650 ml Output Total 10 ml 800 ml 700 ml Balance 490 ml 20 ml -50 ml Exam Constitutional: alert, oriented Head: normocephalic Eyes: PERRL ENMT: other (camilo drain sticking out of goitre, no oozing or bleeding) Gastrointestinal: bowel sounds, non-tender, soft Extremities: No edema Neurological: nl mental status, nl speech Results Result Diagram: 02/14/179 02/14/17 0429 Results 24 hrs Laboratory Tests Test 02/13/17 17:49 02/13/17 20:54 02/13/17 22:17 02/14/17 01:07 Bedside Glucose 265 H 210 192 197 Test 02/14/17 04:29 02/14/17 08:36 White Blood Count 11.2 H Red Blood Count 3.49 L Hemoglobin 11.1 L Hematocrit 33.3 L Mean Corpuscular Volume 95.4 Mean Corpuscular Hemoglobin 31.8 Mean Corpuscular Hemoglobin Concent 33.3 Red Cell Distribution Width 14.8 H Platelet Count 468 H Mean Platelet Volume 10.1 Neutrophils % 81.0 H Lymphocytes % 9.6 L Monocytes % 5.2 Eosinophils % 3.3 Basophils % 0.1 Nucleated Red Blood Cells % 0.0 Neutrophils # 9.1 H Lymphocytes # 1.1 Monocytes # 0.6 Eosinophils # 0.4 Basophils # 0.0 Nucleated Red Blood Cells # 0.0 Sodium Level 135 Potassium Level 5.0 Chloride Level 100 Carbon Dioxide Level 28 Anion Gap 12 Blood Urea Nitrogen 24 H Creatinine 0.91 Glucose Level 189 Calcium Level 9.0 Phosphorus Level 2.9 Magnesium Level 2.0 Bedside Glucose 191 Medications Medications Current Medications Acetaminophen (Tylenol Tab) 500 mg Q6H PRN PO PAIN AND OR ELEVATED TEMP Last administered on 02/12/17 13:45; Admin Dose 500 MG; Start 02/08/17 at 00:30 Losartan Potassium (Cozaar) 100 mg DAILY PO Last administered on 02/13/17 09: 12; Admin Dose 100 MG; Start 02/08/17 at 09:00 Atorvastatin Calcium (Lipitor) 40 mg HS PO Last administered on 02/13/17 20:58 ; Admin Dose 40 MG; Start 02/08/17 at 21:00 Ondansetron HCl (Zofran Inj) 4 mg Q6H PRN IV NAUSEA AND/OR VOMITING; Start 02/08 at 00:30 Miscellaneous Information 1 ea NOTE XX ; Start 02/08/17 at 01:00 Glucose (Glutose) 15 gm Q15M PRN PO DECREASED GLUCOSE; Start 02/08/17 at 01:00 Glucose (Glutose) 22.5 gm Q15M PRN PO DECREASED GLUCOSE; Start 02/08/17 at 01:00 Dextrose (D50w Syringe) 25 ml Q15M PRN IV DECREASED GLUCOSE; Start 02/08/17 at 01:00 Dextrose (D50w Syringe) 50 ml Q15M PRN IV DECREASED GLUCOSE; Start 02/08/17 at 01:00 Glucagon (Glucagen) 1 mg Q15M PRN IM DECREASED GLUCOSE; Start 02/08/17 at 01:00 Glucose (Glutose) 15 gm Q15M PRN BUCCAL DECREASED GLUCOSE; Start 02/08/17 at 01: 00 Propranolol HCl (Inderal) 10 mg TID PO Last administered on 02/13/17 20:58; Admin Dose 10 MG; Start 02/08/17 at 13:00 Diagnostic Test (Pha) (Accu-Chek) 1 ea 02 XX Last administered on 02/14/17 01: 28; Admin Dose 1 EA; Start 02/09/17 at 02:00 Senna (Senokot) 2 tab BID PO Last administered on 02/13/17 20:58; Admin Dose 2 TAB; Start 02/08/17 at 23:00 Magnesium Hydroxide (Milk Of Mag) 30 ml DAILY PRN PO CONSTIPATION; Start at 23:00 Famotidine (Pepcid) 20 mg DAILY PO Last administered on 02/13/17 09:13; Admin Dose 20 MG; Start 02/10/17 at 09:00 Insulin Glargine (Lantus) 15 unit DAILY@20 SC Last administered on 02/13/17 21 :01; Admin Dose 15 UNIT; Start 02/09/17 at 20:00 Pantoprazole (Protonix Tab) 40 mg DAILY@06 PO Last administered on 02/14/17 05 :48; Admin Dose 40 MG; Start 02/10/17 at 06:00 Methimazole (Tapazole) 10 mg QHS PO Last administered on 02/13/17 20:58; Admin Dose 10 MG; Start 02/09/17 at 21:00 Lactobacillus Acidophilus/ Rhamnosus (Culturelle) 1 cap BID PO Last administered on 02/13/17 20:58; Admin Dose 1 CAP; Start 02/10/17 at 21:00 Amoxicillin 500 mg 500 mg TID PO Last administered on 02/13/17 20:58; Admin Dose 500 MG; Start 02/11/17 at 09:00; Stop 02/25/17 at 08:59 Cefotaxime Sodium (Claforan 1gm/50 ml (Pmx)) 50 ml @ 100 mls/hr Q8 IVPB Last administered on 02/14/17 05:48; Admin Dose 100 MLS/HR; Start 02/11/17 at 15:30 Acetaminophen/ Hydrocodone Bitart ([place] (7.5-325)) 1 tab Q4H PRN PO MODERATE PAIN LEVEL 4-6; Start 02/12/17 at 20:30 LISA FONSECA Feb 14, 2017 09:15
[2017-02-14 12:15] VITALS: BP 109/56; PULSE 79; RESP 16
--- NOTE | 2017-02-14 14:06 | HP ---
DATE OF ADMISSION: 02/07/2017 She is definitely feeling better today. The pain has decreased. The drain is in place draining nice ly. There is much less induration and swelling as the cyst had been completely decompressed. As khoi g as it is persisting in draining I will leave the drain in and will continue to follow from here. If it does continue to drain at some point we may just remove the drain and let the cyst recollect a nd plan a thyroidectomy at some point. Dictated By: RADHA RUIZ/SILVERIO Conf#: [id number] DID#: [id number]
[2017-02-14] MEDS: HYDROCODONE/APAP (7.5/325) TAB PO PRN (15:16)
--- NOTE | 2017-02-14 17:56 | CONS ---
DATE OF ADMISSION: 02/07/2017 DATE OF CONSULTATION: 02/14/2017 TYPE OF CONSULTATION: Infectious Disease. REASON FOR CONSULTATION: Antibiotic management. HISTORY OF PRESENT ILLNESS: Paul Cardoza is a 71-year-old female who comes in with left neck sw elling and pain. Her past problems include hypertension and adult-onset diabetes mellitus. She was referred to the emergency room for evaluation of left neck mass. She reported the symptoms of ches t discomfort and left neck pain and swelling. This started about 2 weeks ago and has been progressi vely getting worse. She denied difficulty with swallowing or dyspnea. She also reported weight los s and headache with blurry vision. CT scan of the neck showed left thyroid mass. LABORATORY VALUES: This showed a TSH of less than 0.0153, a T4 of 3.07. Alkaline phosphatase in th e 300s. The patient is admitted to telemetry unit and then transferred to the 4th floor. HOSPITAL COURSE: A CT scan of the neck shows left thyroid mass. She is hyperthyroid. She has hype rtension and diabetes. She was started on steroids and propranolol and Dr. Caputo was called for end ocrine evaluation. White count on the 6th was 10.2. His assessment was hyperthyroidism, acute. H e does not believe that this represents acute thyroiditis with Mera's thyrotoxicosis. He order ed a sedimentation rate to see if this is due to acute thyroiditis in which case a sed rate would be above 100. For now my workup would have nuclear medicine thyroid uptake and scan to determine whet her or not the left thyroid nodule is hyperfunctioning or a hypofunction nodule. If it was hyperfunc tioning, he said I would take her for an I-131 ablation which would have shrunk down the nodule. Rodger kidd, the patient was treated in emergency room with CT scan and iodinated contrast. I cannot do a ny of these tests for at least 2 months. The nodule may actually represent a cyst that has been ble d into. He ordered a regular thyroid ultrasound and then if there is a fluid component, drain that out under ultrasound guidance. Gram stain of body fluid grew out E. coli. She had an abscess that grew out gram-negative rods. Blood cultures are negative. She noted tenderness in her neck. Medi cations were begun. A pathology report is pending and is most consistent with acute hemorrhagic cys t or acute thyroiditis. However, there is one possible catastrophic finding which would be anaplast ic carcinoma of the thyroid which is extremely rare and unlikely. Pathology shows histiocytic and n ecrotic cells and the ultrasound-guided fine needle aspiration with neutrophils, histiocytes and nec rotic cells. This was from a thyroid biopsy fine needle aspirate on 02/09/2017. She was seen by iWlliam Dickens who had incision and drainage of the left thyroid abscess. He left a Guys drain in pl masha and fixated using multiple simple nylon sutures. The patient was then awakened and transferred to recovery room in stable condition. PAST MEDICAL HISTORY: Operations as outlined. FAMILY HISTORY: Noncontributory. SOCIAL HISTORY: She does not smoke, drink or abuse drugs. ALLERGIES: NONE TO PENICILLIN, SULFA OR FOODS. MEDICATIONS: Per chart. REVIEW OF SYSTEMS: As per HPI. PHYSICAL EXAMINATION: GENERAL: The patient is a well-developed, well-nourished female, alert, responsive, oriented x3, in no acute distress. VITAL SIGNS: Stable. She is afebrile. SKIN: Without generalized rash. HEENT: Within normal limits. She has a drain in place where the left thyroid mass is draining the abscess. NECK: Movable. LYMPH NODES: None palpable. CHEST: Decreased breath sounds at the bases. HEART: Without murmur or gallop. ABDOMEN: Soft, nontender, without organosplenomegaly or masses. EXTREMITIES: Without cyanosis, clubbing, or edema. RECTAL AND GENITAL: Deferred. NEUROLOGIC: No focal neurological abnormalities. Today, her white count was 11.2. She is currentl y on methimazole for the hyperthyroidism. She is on believe amoxicillin and cefotaxime. I will dic evans my findings. The E. coli is sensitive to cefotaxime and amoxicillin so we could send her out o n amoxicillin 500 mg t.i.d. which would be adequate since this has been drained. I will dictate my findings to the hospitalist and to Dr. Caputo. Dictated By: EZIO PEARL MD, JD/SILVERIO Conf#: [id number] DID#: [id number]
--- NOTE | 2017-02-14 18:00 | CONS ---
Date/Time of Note Date/Time of Note DATE: 02/14/17 TIME: 17:58 Assessment/Plan Assessment/Plan Chief Complaint/Hosp Course Vito 71-year-old Laotian female in bed. Limited Hungarian. She reports several day history of having had a tenderness in the left neck that came on abruptly. She denies any known history of thyroid disease however her review of systems is positive for tremor and palpitation which goes back at least 2 months. There are no fevers chills or sweats no specific weight loss although on questioning from a different direction she has had some loss of weight Problems: (1) Essential hypertension Status: Chronic Comment: Well-controlled on current medications (2) Diabetes mellitus type 2 in nonobese Status: Chronic Comment: Excellent control on current medication regimen. She has had some modest rise in sugars after the invasive procedures might be expected. Would not change medications as this should settle down especially with relief of the infection. (3) Abscess of thyroid Status: Acute Comment: She is now status post incision and drainage. This is a successful outcome. Ultimately she will probably need this area the thyroid gland removed and given the hyperthyroidism once it is settled down the inflammation is down she can have hemithyroidectomy which should also resolve the hyperthyroidism (4) Hyperthyroidism Status: Acute Comment: As above for the time being use of methimazole (5) Hyperlipidemia Status: Chronic Comment: On statin therapy Qualifiers: Hyperlipidemia type: pure hypercholesterolemia Qualified Code: E78.00 - Pure hypercholesterolemia Consultation Date/Type/Reason Admit Date/Time Feb 07, 2017 at 15:35 Initial Consult Date 02/08/17 Type of Consultation: Endocrinology Reason for Consultation Hyperthyroidism; E. coli thyroid abscess; diabetes mellitus type 2 Referring Provider: ERROL ESTRADA 24 HR Interval Summary Free Text/Dictation Patient reports pain at the surgical site but she actually has less pain than before surgery. Detailed Summary ENT: pain (Pain at surgical site) Respiratory: no complaints Cardiovascular: no complaints Gastrointestinal: no complaints Exam/Review of Systems Vital Signs Vitals Vital Signs Date Time Temp Pulse Resp B/P Pulse Ox O2 Delivery O2 Flow Rate FiO2 02/14/17 12:15 98.0 79 16 109/56 98 Room Air 02/13/17 18:30 2.0 Intake and Output 02/13/17 02/13/17 02/14/17 15:00 23:00 07:00 Intake Total 500 ml 820 ml 650 ml Output Total 10 ml 800 ml 700 ml Balance 490 ml 20 ml -50 ml Exam Constitutional: alert, oriented ENMT: mucosa pink and moist, nl external ears & nose, nl lips & teeth, nl nasal mucosa & septum Neck: other (Wound dressing over neck. Less tenderness more range of motion), supple Respiratory: clear to auscultation, normal air movement Cardiovascular: nl pulses, regular rate and rhythm Results Result Diagram: 02/14/179 02/14/17 042 Results 24 hrs Laboratory Tests Test 02/13/17 20:54 02/13/17 22:17 02/14/17 01:07 02/14/17 04:29 Bedside Glucose 210 192 197 White Blood Count 11.2 H Red Blood Count 3.49 L Hemoglobin 11.1 L Hematocrit 33.3 L Mean Corpuscular Volume 95.4 Mean Corpuscular Hemoglobin 31.8 Mean Corpuscular Hemoglobin Concent 33.3 Red Cell Distribution Width 14.8 H Platelet Count 468 H Mean Platelet Volume 10.1 Neutrophils % 81.0 H Lymphocytes % 9.6 L Monocytes % 5.2 Eosinophils % 3.3 Basophils % 0.1 Nucleated Red Blood Cells % 0.0 Neutrophils # 9.1 H Lymphocytes # 1.1 Monocytes # 0.6 Eosinophils # 0.4 Basophils # 0.0 Nucleated Red Blood Cells # 0.0 Sodium Level 135 Potassium Level 5.0 Chloride Level 100 Carbon Dioxide Level 28 Anion Gap 12 Blood Urea Nitrogen 24 H Creatinine 0.91 Glucose Level 189 Calcium Level 9.0 Phosphorus Level 2.9 Magnesium Level 2.0 Test 02/14/17 08:36 02/14/17 12:33 02/14/17 17:43 Bedside Glucose 191 241 H 186 Medications Medications Current Medications Acetaminophen (Tylenol Tab) 500 mg Q6H PRN PO PAIN AND OR ELEVATED TEMP Last administered on 02/12/17 13:45; Admin Dose 500 MG; Start 02/08/17 at 00:30 Losartan Potassium (Cozaar) 100 mg DAILY PO Last administered on 02/14/17 09: 05; Admin Dose 100 MG; Start 02/08/17 at 09:00 Atorvastatin Calcium (Lipitor) 40 mg HS PO Last administered on 02/13/17 20:58 ; Admin Dose 40 MG; Start 02/08/17 at 21:00 Ondansetron HCl (Zofran Inj) 4 mg Q6H PRN IV NAUSEA AND/OR VOMITING; Start 02/08 at 00:30 Miscellaneous Information 1 ea NOTE XX ; Start 02/08/17 at 01:00 Glucose (Glutose) 15 gm Q15M PRN PO DECREASED GLUCOSE; Start 02/08/17 at 01:00 Glucose (Glutose) 22.5 gm Q15M PRN PO DECREASED GLUCOSE; Start 02/08/17 at 01:00 Dextrose (D50w Syringe) 25 ml Q15M PRN IV DECREASED GLUCOSE; Start 02/08/17 at 01:00 Dextrose (D50w Syringe) 50 ml Q15M PRN IV DECREASED GLUCOSE; Start 02/08/17 at 01:00 Glucagon (Glucagen) 1 mg Q15M PRN IM DECREASED GLUCOSE; Start 02/08/17 at 01:00 Glucose (Glutose) 15 gm Q15M PRN BUCCAL DECREASED GLUCOSE; Start 02/08/17 at 01: 00 Propranolol HCl (Inderal) 10 mg TID PO Last administered on 02/13/17 20:58; Admin Dose 10 MG; Start 02/08/17 at 13:00 Diagnostic Test (Pha) (Accu-Chek) 1 ea 02 XX Last administered on 02/14/17 01: 28; Admin Dose 1 EA; Start 02/09/17 at 02:00 Senna (Senokot) 2 tab BID PO Last administered on 02/14/17 09:05; Admin Dose 2 TAB; Start 02/08/17 at 23:00 Magnesium Hydroxide (Milk Of Mag) 30 ml DAILY PRN PO CONSTIPATION; Start at 23:00 Famotidine (Pepcid) 20 mg DAILY PO Last administered on 02/14/17 09:05; Admin Dose 20 MG; Start 02/10/17 at 09:00 Insulin Glargine (Lantus) 15 unit DAILY@20 SC Last administered on 02/13/17 21 :01; Admin Dose 15 UNIT; Start 02/09/17 at 20:00 Pantoprazole (Protonix Tab) 40 mg DAILY@06 PO Last administered on 02/14/17 05 :48; Admin Dose 40 MG; Start 02/10/17 at 06:00 Methimazole (Tapazole) 10 mg QHS PO Last administered on 02/13/17 20:58; Admin Dose 10 MG; Start 02/09/17 at 21:00 Lactobacillus Acidophilus/ Rhamnosus (Culturelle) 1 cap BID PO Last administered on 02/14/17 09:05; Admin Dose 1 CAP; Start 02/10/17 at 21:00 Amoxicillin 500 mg 500 mg TID PO Last administered on 02/14/17 12:43; Admin Dose 500 MG; Start 02/11/17 at 09:00; Stop 02/25/17 at 08:59 Cefotaxime Sodium (Claforan 1gm/50 ml (Pmx)) 50 ml @ 100 mls/hr Q8 IVPB Last administered on 02/14/17 14:22; Admin Dose 100 MLS/HR; Start 02/11/17 at 15:30 Acetaminophen/ Hydrocodone Bitart ([place] (7.5-325)) 1 tab Q4H PRN PO MODERATE PAIN LEVEL 4-6 Last administered on 02/14/17 15:16; Admin Dose 1 TAB; Start 06/21 at 20:30 YONATAN HERNANDEZ MD Feb 14, 2017 18:00
[2017-02-14 19:54] VITALS: BP 112/56; RESP 19
[2017-02-14] MEDS: ATORVASTATIN 40 MG TAB PO SCH (20:52)
[2017-02-14] MEDS: METHIMAZOLE 5 MG TAB PO SCH (20:52)
[2017-02-14] MEDS: INSULIN GLARGINE [LANtus] 3 ML PEN SC SCH (21:09)
[2017-02-15] MEDS: HYDROCODONE/APAP (7.5/325) TAB PO PRN (00:50)
[2017-02-15] MEDS: ACCU-CHEK XX SCH (01:43)
[2017-02-15] MEDS: PANTOPRAZOLE (EC) 40 MG TAB PO SCH (05:50)
[2017-02-15] MEDS: CEFOTAXIME 1 GM/50 ML (PMX) 50 ML IVPB SCH ×2 (05:50→13:14)
[2017-02-15] MEDS: INSULIN ASPART [NOVOLOG] 3 ML PEN SC SCH ×2 (07:50→13:13)
[2017-02-15 08:15] VITALS: BP 126/60; RESP 18
[2017-02-15] MEDS ORDERED: PROP10TA6 PO (08:29)
[2017-02-15] MEDS ORDERED: HYDR-3605 PO (08:29)
[2017-02-15] MEDS ORDERED: AMO500 PO (08:29)
[2017-02-15] MEDS ORDERED: METH-493 PO (08:29)
[2017-02-15] MEDS ORDERED: LANT3I SC (08:29)
[2017-02-15] MEDS ORDERED: LACT1CAP57 PO (08:29)
[2017-02-15] MEDS: metFORMIN 500 MG TAB PO SCH (08:31)
[2017-02-15] MEDS: SENNA TAB PO SCH (08:32)
[2017-02-15] MEDS: AMOXICILLIN 500 MG CAP PO SCH ×2 (08:32→12:57)
[2017-02-15] MEDS: PROPRANOLOL 10 MG TAB PO SCH ×2 (08:32→12:57)
[2017-02-15] MEDS: LACTOBACILLUS RHAMNOSUS CAP PO SCH (08:33)
[2017-02-15] MEDS: LOSARTAN 50 MG TAB PO SCH (08:33)
[2017-02-15] MEDS: FAMOTIDINE 20 MG TAB PO SCH (08:33)
--- NOTE | 2017-02-15 08:38 | PDOCDIS ---
Discharge Instructions DIAGNOSIS Discharge Diagnosis: Thyroid abscess CONDITION Patient Condition: Stable HOME CARE INSTRUCTIONS: Special Diet: DIABETIC ACTIVITY: Activity Restrictions: Slowly Increase Activity Rest between Activity REFERRALS Other Referrals Please call Dr Dickens's office o arrange followup: Name, Degree Gary Dickens MD Specialty: Otolaryngology Office Address [facility] [address] [place] [address] Office Office Please also call dr Caputo's office for Endocrinology followup Name, Degree : Maco Caputo MD Specialty: Endocrinology Office Address : [address] [place] [address] [address] [place] [address] Office Office OTHER ORDERS: Other Orders: Followup with your primary doctor within the next 1-2 weeks. If you don't have one please let someone know, we can give you resources that may help you pick one. You may call Dr Saurabh Bull's office. he's accepting new patients Name, Degree: Saurabh Bull MD Specialty: Internal Medicine Comments: Office Address: [address] [place] [address] [address] [place] [address] Office Office You may also call your insurance company to assign one to you. * Review your medication list with your nurse before leaving and if you need new prescriptions please let your nurse know. * I have made changes to your home medications or given you new prescriptions, please let your primary doctor know as well. * Stay compliant with your medications and report any side effects to your PCP or pharmacist. * Return to the ER if you have any concerns and cannot reach your doctors or call your insurance company, they usually have a nurse that can help you. LISA FONSECA Feb 15, 2017 08:38
--- NOTE | 2017-02-15 10:52 | DS ---
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 Diabetes type 2: hemoglobin A1c: 6.8 3. Dyslipidemia 4. Hyperthyroidism on methimazole likely secondary to #1 5. Hypertension: controlled 6. Chronic normocytic anemia 7. Mild transaminitis: now resolved . Patient Condition: Stable Consults Endocrinology: ENT: Infectious disease: . Procedures See hospital course. . Hospital Course 71-year-old female who came to the ER because of left neck swelling and pain and was admitted for left thyroid mass and hyperthyroidism. She underwent a CTA of the neck that showed an enlarged heterogeneous left thyroid lobe mass extending substernally. There was also a coarse calcified right thyroid nodule noted in the she was also found to have atherosclerotic disease in the bilateral carotid bulbs without bilateral internal carotid artery stenosis by NASCET criteria. She then underwent a thyroid ultrasound that did show a hypoechoic lesion measuring 6.7 cm in the left thyroid lobe that met criteria for fine-needle aspiration. S. He had 2 other lesions in the right thyroid lobe and in the midpole of the right thyroid lobe as well. She then underwent a fine-needle biopsy and the pathology from that came back showing neutrophils histiocytes and necrotic cells. Based on pathology findings , the pathologist sent the samples for culture and it grew E. coli that was resistant to multiple drugs. Based on the culture results ENT took the patient into the operating room where she underwent incision and drainage was found to have a thyroid abscess. She tolerated this procedure quite well, a Swink drain was left in place and she has done well with that. She is being discharged now in stable condition to follow-up as outpatient with Endocrinology, ENT as well as her primary care doctor. Her serum chemistries were consistent with hyperthyroidism and as such she was started on methimazole. The patient will likely require thyroidectomy at some point in the future but this be pursued as an outpatient. Of note is that she was found to be anemic, iron profile was not consistent with iron deficiency but she did however have a stool occult blood sample that came back positive. She is recommended to follow-up outpatient with gastroenterology for this as well. Her diabetes control was suboptimal at presentation, but hemoglobin A1c came back quite good at 6.8. She was followed by Endo closely in-house and at this time she has good control. Also her electrolytes and labs were monitored daily and replenished as indicated. Ifeanyi shafer has been reviewed reviewed today, she remains in stable condition, physical examination is benign and the patient is open to being discharged today. . Home Meds Active Scripts Methimazole* (Methimazole*) 5 Mg Tablet, 10 MG PO QHS for 30 Days, TAB 2 Refills Prov:LISA FONSECA . 02/15/17 Insulin Glargine* (Lantus*) 100 Unit/Ml Soln, 15 UNIT SC DAILY@20 for 30 Days, 2 [facility] 02/15/17 Lactobacillus Rhamnosus* (Culturelle*) 1 Each Cap.sprink, 1 CAP PO BID for 10 Days, CAP Prov[facility]. 02/15/17 Hydrocodone/Acetaminophen (Hydrocodon-Acetaminoph 7.5-325) 1 Each Tablet, 1 TAB PO Q4H Y for MODERATE PAIN LEVEL 4-6, #14 TAB Prov[facility]. 02/15/17 Propranolol Hcl* (Propranolol Hcl*) 10 Mg Tablet, 10 MG PO TID for 30 Days, TAB 2 Refills Prov:LISA FONSECA . 02/15/17 Amoxicillin* (Amoxicillin*) 500 Mg Cap, 500 MG PO TID for 10 Days, CAP Prov[facility]. 02/15/17 Reported Medications Atorvastatin* (Atorvastatin*) 40 Mg Tablet, 40 MG PO QHS, #30 TAB 02/07/17 Losartan Potassium* (Losartan Potassium*) 100 Mg Tablet, 100 MG PO DAILY, TAB 02/07/17 Pioglitazone Hcl* (Actos*) 45 Mg Tablet, 45 MG PO DAILY, #30 TAB 02/07/17 Metformin* (Glucophage*) 1,000 Mg Tablet, 1000 MG PO BID, #60 TAB 02/07/17 Acetaminophen* (Tylenol*) 500 Mg Tab, 500 MG PO Q4H Y for MILD PAIN LEVEL 1-3, TAB 02/07/17 Aspirin* (Aspirin* EC) 81 Mg Tablet.dr, 81 MG PO DAILY, TAB 02/07/17 Discontinued Reported Medications Amoxicillin* (Amoxil*) 500 Mg Tablet, 500 MG PO BID, TAB 02/07/17 Follow-up Plan See hospital course. . Primary Care Provider Not On Staff Doctor Time spent on discharge: > 30 minutes Pending Labs Laboratory Tests Test 02/14/17 12:33 02/14/17 17:43 02/14/17 21:00 02/15/17 08:30 Bedside Glucose 241mg/dL (70-220) 186mg/dL (70-220) 133mg/dL (70-220) 99mg/dL (70-220) LISA FONSECA Feb 15, 2017 10:52
--- NOTE | 2017-02-15 12:57 | PN ---
DATE: 02/15/2017 SUBJECTIVE: Patient is alert, feels good, looks comfortable, no fevers. Vital signs stable. ANTIMICROBIALS: Amoxicillin p.o. ALLERGIES: NONE. MICROBIOLOGY: Abscess culture grew E. coli. PHYSICAL EXAMINATION: GENERAL: Well-developed, elderly woman who is awake, in no distress. HEENT: Head atraumatic, normocephalic. Sclerae anicteric. Buccal mucosa dry. NECK: Supple. CHEST: Rise symmetrical. Breath sounds clear. HEART: S1, S2. ABDOMEN: Soft, bowel tones present. EXTREMITIES: Without cyanosis. SKIN: No jaundice, rashes, cyanosis. The patient has a dressing over her neck that is clean, dry a nd intact. ASSESSMENT: 1. Status post left thyroid abscess incision and drainage with drainage and cultures growing Escherichia coli. 2. Diabetes. 3. Hyperthyroidism. 4. Hypertension. PLAN: The patient remains stable. Cleared by ENT for discharge. We will keep her on amoxicillin p ost-discharge and follow with ENT for further recommendations. Dictated By: MACRINA NOGUERA TIRE BUILDER OPERATOR for EZIO DUMAS/SILVERIO Conf#: [id number] DID#: [id number]
--- NOTE | 2017-02-15 13:35 | CONS ---
Date/Time of Note Date/Time of Note DATE: 02/15/17 TIME: 13:34 Assessment/Plan Assessment/Plan Chief Complaint/Hosp Course Vito 71-year-old Laotian female in bed. Limited Faroese. She reports several day history of having had a tenderness in the left neck that came on abruptly. She denies any known history of thyroid disease however her review of systems is positive for tremor and palpitation which goes back at least 2 months. There are no fevers chills or sweats no specific weight loss although on questioning from a different direction she has had some loss of weight Problems: Consultation Date/Type/Reason Admit Date/Time Feb 07, 2017 at 15:35 Initial Consult Date 02/08/17 Type of Consultation: Endocrinology Reason for Consultation Throid absess; hyperthyroidim; DM2 Referring Provider: ERROL ESTRADA 24 HR Interval Summary Free Text/Dictation No changes Exam/Review of Systems Vital Signs Vitals Vital Signs Date Time Temp Pulse Resp B/P Pulse Ox O2 Delivery O2 Flow Rate FiO2 02/15/17 08:15 97.8 66 18 126/60 95 02/14/17 12:15 Room Air 02/13/17 18:30 2.0 Intake and Output 02/14/17 02/14/17 02/15/17 15:00 23:00 07:00 Intake Total 50 ml 750 ml 650 ml Output Total 500 ml Balance 50 ml 250 ml 650 ml Results Result Diagram: 02/14/17 0429 02/14/17 0429 Results 24 hrs Laboratory Tests Test 02/14/17 17:43 02/14/17 21:00 02/15/17 08:30 02/15/17 12:34 Bedside Glucose 186 133 99 153 Medications Medications Current Medications Acetaminophen (Tylenol Tab) 500 mg Q6H PRN PO PAIN AND OR ELEVATED TEMP Last administered on 02/12/17 13:45; Admin Dose 500 MG; Start 02/08/17 at 00:30 Losartan Potassium (Cozaar) 100 mg DAILY PO Last administered on 02/15/17 08: 33; Admin Dose 100 MG; Start 02/08/17 at 09:00 Atorvastatin Calcium (Lipitor) 40 mg HS PO Last administered on 02/14/17 20:52 ; Admin Dose 40 MG; Start 02/08/17 at 21:00 Ondansetron HCl (Zofran Inj) 4 mg Q6H PRN IV NAUSEA AND/OR VOMITING; Start 02/08 at 00:30 Miscellaneous Information 1 ea NOTE XX ; Start 02/08/17 at 01:00 Glucose (Glutose) 15 gm Q15M PRN PO DECREASED GLUCOSE; Start 02/08/17 at 01:00 Glucose (Glutose) 22.5 gm Q15M PRN PO DECREASED GLUCOSE; Start 02/08/17 at 01:00 Dextrose (D50w Syringe) 25 ml Q15M PRN IV DECREASED GLUCOSE; Start 02/08/17 at 01:00 Dextrose (D50w Syringe) 50 ml Q15M PRN IV DECREASED GLUCOSE; Start 02/08/17 at 01:00 Glucagon (Glucagen) 1 mg Q15M PRN IM DECREASED GLUCOSE; Start 02/08/17 at 01:00 Glucose (Glutose) 15 gm Q15M PRN BUCCAL DECREASED GLUCOSE; Start 02/08/17 at 01: 00 Propranolol HCl (Inderal) 10 mg TID PO Last administered on 02/15/17 12:57; Admin Dose 10 MG; Start 02/08/17 at 13:00 Diagnostic Test (Pha) (Accu-Chek) 1 ea 02 XX Last administered on 02/14/17 01: 28; Admin Dose 1 EA; Start 02/09/17 at 02:00 Senna (Senokot) 2 tab BID PO Last administered on 02/15/17 08:32; Admin Dose 2 TAB; Start 02/08/17 at 23:00 Magnesium Hydroxide (Milk Of Mag) 30 ml DAILY PRN PO CONSTIPATION; Start at 23:00 Famotidine (Pepcid) 20 mg DAILY PO Last administered on 02/15/17 08:33; Admin Dose 20 MG; Start 02/10/17 at 09:00 Insulin Glargine (Lantus) 15 unit DAILY@20 SC Last administered on 02/14/17 21 :09; Admin Dose 15 UNIT; Start 02/09/17 at 20:00 Pantoprazole (Protonix Tab) 40 mg DAILY@06 PO Last administered on 02/15/17 05 :50; Admin Dose 40 MG; Start 02/10/17 at 06:00 Methimazole (Tapazole) 10 mg QHS PO Last administered on 02/14/17 20:52; Admin Dose 10 MG; Start 02/09/17 at 21:00 Lactobacillus Acidophilus/ Rhamnosus (Culturelle) 1 cap BID PO Last administered on 02/15/17 08:33; Admin Dose 1 CAP; Start 02/10/17 at 21:00 Amoxicillin 500 mg 500 mg TID PO Last administered on 02/15/17 12:57; Admin Dose 500 MG; Start 02/11/17 at 09:00; Stop 02/25/17 at 08:59 Cefotaxime Sodium (Claforan 1gm/50 ml (Pmx)) 50 ml @ 100 mls/hr Q8 IVPB Last administered on 02/15/17 13:14; Admin Dose 100 MLS/HR; Start 02/11/17 at 15:30 Acetaminophen/ Hydrocodone Bitart ([place] (7.5-325)) 1 tab Q4H PRN PO MODERATE PAIN LEVEL 4-6 Last administered on 02/15/17 00:50; Admin Dose 1 TAB; Start 06/21 at 20:30 YONATAN HERNANDEZ MD Feb 15, 2017 13:35
== END 2017-02-15 17:50 | disposition home health service (06) | DRG 644 ==
LOC: E/R 10:32 → MS1 15:35
PROVIDERS: ADMIT Internal Medicine; ATTEND Internal Medicine
PROC: 0G9G3ZX Drainage of Left Thyroid Gland Lobe, Percutaneous Approach, Diagnostic (ICD-10-PCS; 2017-02-09)
PROC: 30233N1 Transfusion of Nonautologous Red Blood Cells into Peripheral Vein, Percutaneous Approach (ICD-10-PCS; 2017-02-09)
PROC: 0G9 Endocrine System, Drainage (ICD-10-PCS; principal; 2017-02-13 14:00)
DX: E05.20 Thyrotoxicosis with toxic multinodular goiter without thyrotoxic crisis or storm (principal); E06.0 Acute thyroiditis; E11.9 Type 2 diabetes mellitus without complications; D50.0 Iron deficiency anemia secondary to blood loss (chronic); E78.5 Hyperlipidemia, unspecified; B96.20 Unspecified Escherichia coli [E. coli] as the cause of diseases classified elsewhere; D63.8 Anemia in other chronic diseases classified elsewhere; I25.10 Atherosclerotic heart disease of native coronary artery without angina pectoris; R74.0 Nonspecific elevation of levels of transaminase and lactic acid dehydrogenase [LDH]; R74.8 Abnormal levels of other serum enzymes; Z79.84 Long term (current) use of oral hypoglycemic drugs; Z79.82 Long term (current) use of aspirin
CPT/HCPCS: 36415; 36430; 70498; 71010; 76536; 80048; 80053; 80061; 82270; 82306; 82533; 82728; 82962; 83036; 83540; 83690; 83735; 84100; 84439; 84443; 84481; 84484; 85025; 85610; 85651; 85730; 86800; 86803; 86850; 86900; 86901; 86920; 87040; 87070; 87075; 87102; 87116; 87340; 88104; 88305; 93005; 96374; 96375; 96376; J0360; J0698; J1100; J1815; J2250; J2270; J2370; J2405; J2920; J2930; J3010; J3475; J7030; J7999; P9016; Q9967